=== PATIENT | female | born 1945 | race Caucasian/White ===

== ENCOUNTER → 2017-01-07 | Outpatient (CLI) | payer MEDICARE, BC ==
[2015-12-08 11:00] VITALS: BP 154/82
[~2017-01-07] MED LIST: ALPR0.25 PO; FLUO20TA11 PO
--- NOTE | 2017-01-07 15:05 | RAD ---
Lumbar spine, 3 views, 01/07/2017: History: Chronic low back pain There is a mild left convexity lumbar scoliosis. The vertebral heights are well-maintained. The intervertebral disc spaces are fairly well preserved. There are mild scattered marginal spurs. There are moderate degenerative changes involving the facet joints in the lower lumbar spine. A grade 1 spondylolisthesis is present at L5-S1. There appears to be underlying spondylolysis at L5. This spondylolisthesis progressed since 08/22/2006. Aortic calcific plaquing is present. IMPRESSION: 1. Mild to moderate scattered degenerative changes. 2. Grade 1 spondylolisthesis at L5-S1 with probable underlying spondylolysis at L5.
== END | disposition home or self-care (01) ==
LOC: RAD 08:45
PROVIDERS: ATTEND Neurological Surgery
DX: M47.896 Other spondylosis, lumbar region (principal)
CPT/HCPCS: 72100

== ENCOUNTER 2017-02-17 04:20 | Emergency (ER) | payer MEDICARE, BC ==
[~2017-02-17] VITALS: Ht 160 cm; Wt 80.3 kg
[2017-02-17 05:20] LABS: BILIRUBIN,URINE NEGATIVE (NEG); GLUCOSE,URINE NEGATIVE (NEG); NITRITE,URINE NEGATIVE (NEG); PROTEIN,URINE NEGATIVE (NEG-TRACE); UROBILINOGEN,URINE 0.2 mg/dL (0.2 mg/dL)
--- NOTE | 2017-02-17 05:32 | RAD ---
INDICATION: Vertigo COMPARISON: None TECHNIQUE: Axial CT images obtained through the head. One or more of the following individualized dose reduction techniques were utilized for this examination: 1. Automated exposure control; 2. Adjustment of the mA and/or kV according to patient size; 3. Use of iterative reconstruction technique. FINDINGS: No midline shift. Ventricles and sulci are prominent. Basilar cistern patent. No gross hemorrhage. No displaced skull fracture. Regions of low attenuation of the white matter. IMPRESSION: No acute intracranial hemorrhage. Regions of low attenuation of the white matter. Nonspecific but frequently secondary to small vessel ischemic disease. If there is any clinical concern for acute etiology MRI could be obtained to assess whether any of these foci are acute. Other possible causes include sequela of demyelination or migraine. Electronically signed by: Rick French (Feb 17, 2017 05:31:24)
[2017-02-17 05:34] LABS: BACTERIA,URINE FEW /HPF (0-FEW); RBC,URINE 0 /HPF (0-2); SQUAMOUS EPITHELIAL CELL,UR FEW /LPF
[2017-02-17 05:44] LABS: BASO % 0 % (0-3); EOS % 1 % (0-3); HEMATOCRIT 44.2 % (36.0-47.0); HEMOGLOBIN 14.7 g/dL (12.0-15.5); LYMPH # 2.1 x10^3/uL (1.0-4.8); LYMPH % 31 % (24-48); MEAN CORPUSCULAR HEMOGLOBIN 29 pg (25-35); MEAN CORPUSCULAR HGB CONC 33 g/dL (31-37); MEAN CORPUSCULAR VOLUME 88 fL (79-100); MONO % 8 % (0-9); NEUT % 60 % (31-73); PLATELET COUNT 242 x10^3/uL (140-400); RED CELL DISTRIBUTION WIDTH 13.9 % (11.5-14.5); WHITE BLOOD COUNT 6.8 x10^3/uL (4.0-11.0)
[2017-02-17 05:48] LABS: CALCIUM 9.5 mg/dL (8.5-10.1); GFR 54.8
[2017-02-17 05:51] VITALS: BP 155/85
[2017-02-17 05:56] LABS: ALBUMIN 3.8 g/dL (3.4-5.0); ALBUMIN/GLOBULIN RATIO 0.9 (1.0-1.7); TOTAL BILIRUBIN 0.4 mg/dL (0.2-1.0); TOTAL PROTEIN 8.1 g/dL (6.4-8.2)
[2017-02-17] MEDS ORDERED: MECLIZINE HCL 12.5 MG TABLET. PO ONE (06:15)
[2017-02-17] MEDS ORDERED: MECL25TA3 PO (06:29)
--- NOTE | 2017-02-17 06:29 | PHYS DOC ---
Past Medical History Past Medical History: Other Additional Past Medical Histor: VERTIGO Past Surgical History: No Surgical History Alcohol Use: None Drug Use: None Adult General Chief Complaint Chief Complaint: HYPERTENSION HPI HPI 71-year-old female who states she's had subjective dizziness when she turns her head to the right for the last 2-3 days. Patient has had vertigo in the past most recently approximately one year ago and has been told she does have an inner ear issue that has required physical therapy in the past. She states she did feel like she was going to vomit earlier today but has no other significant symptoms. She denies any headache. She denies any shortness of breath or chest pain. She denies any fever or chills. She does state she has some sinus congestion. There is an at-home blood pressure machine at home and she took her pressure and it was slightly elevated and she states her blood pressure is normally well controlled without medications. Currently in the room her blood pressure is 155/85. Patient denies any current symptoms upon my initial assessment. Review of Systems Review of Systems Constitutional: Denies fever or chills [] Eyes: Denies change in visual acuity, redness, or eye pain [] HENT: Has nasal congestion, denies sore throat [] Respiratory: Denies cough or shortness of breath [] Cardiovascular: No additional information not addressed in HPI [] GI: Denies abdominal pain, nausea, vomiting, bloody stools or diarrhea [] : Denies dysuria or hematuria [] Musculoskeletal: Denies back pain or joint pain [] Integument: Denies rash or skin lesions [] Neurologic: Denies headache, focal weakness or sensory changes [] Endocrine: Denies polyuria or polydipsia [] Current Medications Current Medications Current Medications Medications (Trade) Dose Ordered Sig/Mark Start Time Stop Time Status Last Admin Dose Admin Meclizine HCl (Antivert) 50 mg 1X ONCE 02/17/17 06:15 02/17/17 06:16 DC 02/17/17 06:26 50 MG Allergies Allergies Allergies Coded Allergies Type Severity Reaction Last Updated Verified cephalexin Allergy Severe shortness of breath 12/06/15 Yes Tetracyclines Allergy Intermediate palpatations 12/06/15 Yes erythromycin base Allergy Intermediate vomiting 12/06/15 Yes metronidazole Allergy Intermediate palpatations, nausea, intestinal noise, numbness 12/06/15 Yes omeprazole Allergy Intermediate chest pain 12/06/15 Yes pantoprazole Allergy Intermediate headache 12/06/15 Yes shrimp Allergy Intermediate facial flushing 12/06/15 Yes Physical Exam Physical Exam Constitutional: Well developed, well nourished, no acute distress, non-toxic appearance. [] HENT: Normocephalic, atraumatic, bilateral external ears normal, oropharynx moist, no oral exudates, nose normal. [] Eyes: PERRLA, EOMI, conjunctiva normal, no discharge. [] Neck: Normal range of motion, no tenderness, supple, no stridor. [] Cardiovascular:Heart rate regular rhythm, no murmur [] Lungs & Thorax: Bilateral breath sounds clear to auscultation [] Abdomen: Bowel sounds normal, soft, no tenderness, no masses, no pulsatile masses. [] Skin: Warm, dry, no erythema, no rash. [] Back: No tenderness, no CVA tenderness. [] Extremities: No tenderness, no cyanosis, no clubbing, ROM intact, no edema. [] Neurologic: Alert and oriented X 3, normal motor function, normal sensory function, no focal deficits noted. [] Psychologic: Affect normal, judgement normal, mood normal. [] Current Patient Data Vital Signs Vital Signs Date Time Temp Pulse Resp B/P Pulse Ox O2 Delivery O2 Flow Rate FiO2 02/17/17 05:51 72 155/85 98 Room Air 02/17/17 05:11 97.5 16 97.5 Lab Values Laboratory Tests Test 02/17/17 05:10 02/17/17 05:30 Urine Collection Type Unknown Urine Color Yellow Urine Clarity Clear Urine pH 7.0 Urine Specific [place] 1.010 Urine Protein Negativemg/dL (NEG-TRACE) Urine Glucose (UA) Negativemg/dL (NEG) Urine Ketones (Stick) Negativemg/dL (NEG) Urine Blood Negative (NEG) Urine Nitrite Negative (NEG) Urine Bilirubin Negative (NEG) Urine Urobilinogen Dipstick 0.2mg/dL (0.2 mg/dL) Urine Leukocyte Esterase Large (NEG) Urine RBC 0/HPF (0-2) Urine WBC 11-20/HPF (0-4) Urine Squamous Epithelial Cells Few/LPF Urine Bacteria Few/HPF (0-FEW) White Blood Count 6.8x10^3/uL (4.0-11.0) Red Blood Count 5.00x10^6/uL (3.50-5.40) Hemoglobin 14.7g/dL (12.0-15.5) Hematocrit 44.2% (36.0-47.0) Mean Corpuscular Volume 88fL (79-100) Mean Corpuscular Hemoglobin 29pg (25-35) Mean Corpuscular Hemoglobin Concent 33g/dL (31-37) Red Cell Distribution Width 13.9% (11.5-14.5) Platelet Count 242x10^3/uL (140-400) Neutrophils (%) (Auto) 60% (31-73) Lymphocytes (%) (Auto) 31% (24-48) Monocytes (%) (Auto) 8% (0-9) Eosinophils (%) (Auto) 1% (0-3) Basophils (%) (Auto) 0% (0-3) Neutrophils # (Auto) 4.1x10^3uL (1.8-7.7) Lymphocytes # (Auto) 2.1x10^3/uL (1.0-4.8) Monocytes # (Auto) 0.5x10^3/uL (0.0-1.1) Eosinophils # (Auto) 0.1x10^3/uL (0.0-0.7) Basophils # (Auto) 0.0x10^3/uL (0.0-0.2) Sodium Level 138mmol/L (136-145) Potassium Level 4.0mmol/L (3.5-5.1) Chloride Level 101mmol/L (98-107) Carbon Dioxide Level 28mmol/L (21-32) Anion Gap 9 (6-14) Blood Urea Nitrogen 16mg/dL (7-20) Creatinine 1.0mg/dL (0.6-1.0) Estimated GFR (Cockcroft-Gault) 54.8 BUN/Creatinine Ratio 16 (6-20) Glucose Level 112mg/dL (70-99) H Calcium Level 9.5mg/dL (8.5-10.1) Total Bilirubin 0.4mg/dL (0.2-1.0) Aspartate Amino Transferase (AST) 12U/L (15-37) L Alanine Aminotransferase (ALT) 17U/L (14-59) Alkaline Phosphatase 72U/L (46-116) Troponin I Quantitative < 0.017ng/mL (0.000-0.055) Total Protein 8.1g/dL (6.4-8.2) Albumin 3.8g/dL (3.4-5.0) Albumin/Globulin Ratio 0.9 (1.0-1.7) L Laboratory Tests 02/17/17 05:30 Laboratory Tests 02/17/17 05:30 EKG EKG EKG as interpreted by me shows sinus rhythm with a rate of 73 bpm. There are no obvious ischemic findings. This EKG does not meet STEMI criteria. Radiology/Procedures Radiology/Procedures INDICATION: Vertigo COMPARISON: None TECHNIQUE: Axial CT images obtained through the head. One or more of the following individualized dose reduction techniques were utilized for this examination: 1. Automated exposure control; 2. Adjustment of the mA and/or kV according to patient size; 3. Use of iterative reconstruction technique. FINDINGS: No midline shift. Ventricles and sulci are prominent. Basilar cistern patent. No gross hemorrhage. No displaced skull fracture. Regions of low attenuation of the white matter. IMPRESSION: No acute intracranial hemorrhage. Regions of low attenuation of the white matter. Nonspecific but frequently secondary to small vessel ischemic disease. If there is any clinical concern for acute etiology MRI could be obtained to assess whether any of these foci are acute. Other possible causes include sequela of demyelination or migraine. Electronically signed by: Rick French (Feb 17, 2017 05:31:24) Course & Med Decision Making Course & Med Decision Making Pertinent Labs and Imaging studies reviewed. (See chart for details) This 71-year-old female who is likely describing symptoms of positional vertigo. Her physical exam is completely benign and I was not able to elicit any symptoms. She is currently not having any symptoms. Her blood work was unrevealing. Her urinalysis demonstrates infection. An EKG at bedside will be obtained. If this is negative, she will be sent home for evaluation with her primary care doctor to have her blood pressure rechecked and will also be prescribed antibiotics for her UTI and melizine as needed for any vertigo symptoms. Her neurologic exam was completely negative for any focal signs. The patient was successfully ambulated multiple times while in the department. Her EKG was unrevealing. CT of her head did show some areas of low attenuation white matter that are nonspecific but likely related to small vessel disease. She will follow closely with her primary care doctor for her symptoms with strict instruction to return if her symptoms should worsen in any way. Patient and family at bedside are very agreeable with this plan. Zeke Disclaimer Zeke Disclaimer This electronic medical record was generated, in whole or in part, using a voice recognition dictation system. Departure Departure Impression: Primary Impression: Vertigo Additional Impression: UTI (urinary tract infection) Disposition: HOME, SELF-CARE Admitting Physician: Other Condition: STABLE Referrals: MARIA LUZ NUNEZ MD (PCP) Patient Instructions: Urinary Tract Infection, [id number], Vertigo, Easy-to- Read Additional Instructions: Please follow up later today as discussed with your primary doctor to have your blood pressure rechecked. Take your antibiotic as prescribed. Take your meclizine as prescribed for any dizziness symptoms. Continue to drink plenty of fluids. Scripts Nitrofurantoin Monohyd/M-Cryst (Macrobid 100 Mg Capsule)100 Mg Capsule1 Cap PO BID #10 CAP Prov:MAGALI AVILA DO 02/17/17 Meclizine Hcl 25 Mg Lttmim72 Mg PO BID PRN dizziness #10 TAB Prov:MAGALI AVILA DO 02/17/17 Problem Qualifiers MAGALI AVILA DO Feb 17, 2017 06:29
[2017-02-17] MEDS ORDERED: NITR100C62 PO (06:32)
--- NOTE | 2017-02-17 07:30 | EKG ---
[facility] [address] [place] [address] Test Date: 2017-02-17 Test Time: 06:41:36 Pat Name: CIRILO DE LOS SANTOS Department: Room: Gender: F Manager Sign: : 1945 Requested By: MAGALI AVILA Order Number: [id number] Reading MD: Jadon Payan Measurements Intervals [place] Rate: 73 P: 22 [place]: 158 QRS: 26 QRSD: 86 T: 16 QT: 372 QTc: 413 Interpretive Statements SINUS RHYTHM Electronically Signed On 02-17-2017 8:29:07 CDT by Jadon Payan
== END 2017-02-17 06:55 | disposition home or self-care (01) ==
LOC: ER 04:20
DX: R42 Dizziness and giddiness (principal); N39.0 Urinary tract infection, site not specified; R09.81 Nasal congestion; R03.0 Elevated blood-pressure reading, without diagnosis of hypertension; Z88.8 Allergy status to other drugs, medicaments and biological substances; Z88.1 Allergy status to other antibiotic agents; Z91.013 Allergy to seafood
CPT/HCPCS: 36415; 70450; 80053; 81001; 84484; 85027; 87086; 93005; 99285; J8597

== ENCOUNTER 2017-02-18 15:07 | Inpatient (IN) | payer MEDICARE, BC ==
[~2017-02-18] VITALS: Ht 160 cm; Wt 78.7 kg
[~2017-02-18 15:07] MED LIST changes: +MECL25TA3 PO; +NITR100C62 PO
[2017-02-18] MEDS ORDERED: diphenhydrAMINE 50 MG/ML VIAL IVP ONE (16:45)
[2017-02-18] MEDS ORDERED: KETOROLAC 15 MG/ML VIAL. IV ONE (16:45)
[2017-02-18] MEDS ORDERED: PROCHLORPERAZINE 10 MG/2 ML VIAL. IV ONE (16:45)
--- NOTE | 2017-02-18 16:48 | RAD ---
AP portable chest radiograph 02/18/2017 Clinical History: Shortness of breath. An AP portable erect digital radiograph of the chest was obtained. No previous studies are available for comparison. The cardiac silhouette is mildly enlarged. The thoracic aorta is tortuous. Atherosclerotic calcification of the thoracic aorta is seen. Linear bands of subsegmental atelectasis are seen involving the left lower lobe. No area of consolidation is seen. No pneumothorax or pleural effusion is noted. Degenerative changes are seen involving the thoracic spine and both shoulders. Impression: No area of consolidation is seen.
--- NOTE | 2017-02-18 17:05 | EKG ---
[facility] [address] [place] [address] Test Date: 2017-02-18 Test Time: 16:20:08 Pat Name: CIRILO DE LOS SANTOS Department: Room: Gender: F Certified Tumor Registrar: : 1945 Requested By: MATTHIEU ROCHA Order Number: [id number] Reading MD: Jadon Payan Measurements Intervals [place] Rate: 80 P: 23 [place]: 154 QRS: 45 QRSD: 88 T: 21 QT: 356 QTc: 414 Interpretive Statements SINUS RHYTHM Electronically Signed On 03-01-2017 13:05:39 CDT by Jadon Payan
--- NOTE | 2017-02-18 17:19 | ED.ADGEN ---
Past Medical History Past Medical History: Hypertension, UTI Additional Past Medical Histor: dizziness Past Surgical History: No Surgical History Alcohol Use: None Drug Use: None Adult General Chief Complaint Chief Complaint: HEADACHE HPI HPI Patient is a 71 year old woman, with history of hypertension, vertigo, who presents emergency Department with a complaint of headache. Patient was seen in the emergency department yesterday, evaluated for vertigo that occurred just turned her head to the right side. Patient received meclizine, CT, blood work and additional evaluation which not reveal any evidence of acutely certain findings, and her vertigo was improved. Patient was also treated for area tract infection at that time. Patient states that she saw her doctor today, and was told that her blood pressure remained elevated, patient states she has been not fully compliant with her blood pressure medication the past, but did take her hydralazine 12.5 mg around 1 PM about 2 hours prior to evaluation in the ED. Patient's blood pressure remains elevated, 180 02/05/03. Patient also states that she had a brief episode of "feeling my throat was closing up", and shortness of breath about an hour after taking ciprofloxacin and Aleve along with hydralazine. She denies any the symptoms prior to taking the medication or afterwards. Denies any other ingestions during that time period. She states that she has used Cipro Floxin previously, and she was changed from Macrobid to ciprofloxacin by her primary today. Patient with unlabored respirations and no signs of tongue swelling or stridor or other concerning findings on examination at this time. She denies any focal weakness, numbness or tingling, any vision changes, any nausea or vomiting, any chest pain, any abdominal pain, any injuries. She states that her headache is located in the frontal region, is not worsened with motion or activity. Has not responded to the leave at this time. She describes it as a 10 out of 10 pain currently. No photophobia, denies any similar symptoms previously. No injuries. She states it began yesterday evening , and became gradually worse, she states it started shortly after she took her first dose of antibiotics. Patient's son is at bedside. Review of Systems Review of Systems Constitutional: Denies fever or chills. [] Eyes: Denies change in visual acuity. [] HENT: Denies nasal congestion or sore throat, feeling of "throat tightness", now resolved. Respiratory: Denies cough, shortness of breath, now resolved. Cardiovascular: Denies chest pain or edema. [] GI: Denies abdominal pain, nausea, vomiting, bloody stools or diarrhea. [] : Denies dysuria. [] Musculoskeletal: Denies back pain or joint pain. [] Integument: Denies rash. [] Neurologic: Denies focal weakness or sensory changes. [] Frontal headache. Endocrine: Denies polyuria or polydipsia. [] Lymphatic: Denies swollen glands. [] Psychiatric: Denies depression or anxiety. [] Current Medications Current Medications Current Medications Medications (Trade) Dose Ordered Sig/Mark Start Time Stop Time Status Last Admin Dose Admin Amlodipine Besylate (Norvasc) 5 mg 1X ONCE 02/18/17 20:30 02/18/17 20:31 DC 02/18/17 20:30 5 MG Diphenhydramine HCl (Benadryl) 25 mg 1X ONCE 02/18/17 16:45 02/18/17 16:46 DC 02/18/17 17:47 25 MG Ketorolac Tromethamine (Toradol) 10 mg 1X ONCE 02/18/17 16:45 02/18/17 16:46 DC 02/18/17 17:45 10 MG Lidocaine HCl (Lidocaine Pf 2% Vial) 4 ml 1X ONCE 02/18/17 18:45 02/18/17 18:46 DC 02/18/17 19:26 4 ML Prochlorperazine Edisylate (Compazine) 10 mg 1X ONCE 02/18/17 16:45 02/18/17 16:46 DC 02/18/17 17:44 10 MG Allergies Allergies Allergies Coded Allergies Type Severity Reaction Last Updated Verified cephalexin Allergy Severe shortness of breath 12/06/15 Yes Tetracyclines Allergy Intermediate palpatations 12/06/15 Yes erythromycin base Allergy Intermediate vomiting 12/06/15 Yes metronidazole Allergy Intermediate palpatations, nausea, intestinal noise, numbness 12/06/15 Yes omeprazole Allergy Intermediate chest pain 12/06/15 Yes pantoprazole Allergy Intermediate headache 12/06/15 Yes shrimp Allergy Intermediate facial flushing 12/06/15 Yes Physical Exam Physical Exam Constitutional: Well developed, well nourished, no acute distress, non-toxic appearance. [] HENT: Normocephalic, atraumatic, bilateral external ears normal, oropharynx moist, no oral exudates, nose normal. [] Normal-appearing mucosa and tongue. Eyes: PERRLA, EOMI, conjunctiva normal, no discharge. [] Neck: Normal range of motion, no tenderness, supple, no stridor. [] Cardiovascular:Heart rate regular rhythm, no murmur, S1, S2, rubs or gallops. [] Lungs & Thorax: Bilateral breath sounds clear to auscultation, no wheezing, rhonchi, rales. No chest or crepitus or tenderness. [] Abdomen: Bowel sounds normal, soft, no tenderness, no rebound, rigidity, no guarding, no masses, no pulsatile masses. [] Skin: Warm, dry, no erythema, no rash. [] Back: No tenderness, no CVA tenderness. [] Extremities: No tenderness, no cyanosis, no clubbing, ROM intact, no edema. [] Neurologic: Alert and oriented X 3, normal motor function, patient complains of slightly diminished sensation on the left side of her face, left upper extremity left lower extremity circumferentially. Negative pronator drift, negative jolt accentuation test. Psychologic: Affect normal, judgement normal, mood normal. [] Current Patient Data Vital Signs Vital Signs Date Time Temp Pulse Resp B/P Pulse Ox O2 Delivery O2 Flow Rate FiO2 02/18/17 20:30 80 178/84 02/18/17 20:29 96 Room Air 02/18/17 15:12 97.5 20 97.5 Lab Values Laboratory Tests Test 02/18/17 17:20 02/18/17 17:25 02/18/17 17:45 Urine Opiates Screen Neg (NEG) Urine Methadone Screen Neg (NEG) Urine Barbiturates Neg (NEG) Urine Phencyclidine Screen Neg (NEG) Urine Amphetamine/Methamphetamine Neg (NEG) Urine Benzodiazepines Screen Neg (NEG) Urine Cocaine Screen Neg (NEG) Urine Cannabinoids Screen Neg (NEG) Urine Ethyl Alcohol Neg (NEG) Urine Color Yellow Urine Clarity Clear Urine pH 5.5 Urine Specific [place] 1.015 Urine Protein Negativemg/dL (NEG-TRACE) Urine Glucose (UA) Negativemg/dL (NEG) Urine Ketones (Stick) Negativemg/dL (NEG) Urine Blood Negative (NEG) Urine Nitrite Negative (NEG) Urine Bilirubin Negative (NEG) Urine Urobilinogen Dipstick 0.2mg/dL (0.2 mg/dL) Urine Leukocyte Esterase Small (NEG) Urine RBC 0/HPF (0-2) Urine WBC 1-4/HPF (0-4) Urine Squamous Epithelial Cells Occ/LPF Urine Bacteria Few/HPF (0-FEW) Urine Mucus Slight/LPF White Blood Count 8.4x10^3/uL (4.0-11.0) Red Blood Count 5.04x10^6/uL (3.50-5.40) Hemoglobin 14.9g/dL (12.0-15.5) Hematocrit 44.5% (36.0-47.0) Mean Corpuscular Volume 88fL (79-100) Mean Corpuscular Hemoglobin 30pg (25-35) Mean Corpuscular Hemoglobin Concent 34g/dL (31-37) Red Cell Distribution Width 13.7% (11.5-14.5) Platelet Count 230x10^3/uL (140-400) Neutrophils (%) (Auto) 63% (31-73) Lymphocytes (%) (Auto) 28% (24-48) Monocytes (%) (Auto) 8% (0-9) Eosinophils (%) (Auto) 0% (0-3) Basophils (%) (Auto) 0% (0-3) Neutrophils # (Auto) 5.2x10^3uL (1.8-7.7) Lymphocytes # (Auto) 2.4x10^3/uL (1.0-4.8) Monocytes # (Auto) 0.7x10^3/uL (0.0-1.1) Eosinophils # (Auto) 0.0x10^3/uL (0.0-0.7) Basophils # (Auto) 0.0x10^3/uL (0.0-0.2) Prothrombin Time 13.0SEC (11.7-14.0) Prothrombin Time INR 1.0 (0.8-1.1) PTT 30SEC (24-38) Sodium Level 130mmol/L (136-145) L Potassium Level 3.8mmol/L (3.5-5.1) Chloride Level 91mmol/L (98-107) L Carbon Dioxide Level 25mmol/L (21-32) Anion Gap 14 (6-14) Blood Urea Nitrogen 13mg/dL (7-20) Creatinine 1.0mg/dL (0.6-1.0) Estimated GFR (Cockcroft-Gault) 54.8 BUN/Creatinine Ratio 13 (6-20) Glucose Level 108mg/dL (70-99) H Calcium Level 9.2mg/dL (8.5-10.1) Total Bilirubin 0.6mg/dL (0.2-1.0) Aspartate Amino Transferase (AST) 12U/L (15-37) L Alanine Aminotransferase (ALT) 16U/L (14-59) Alkaline Phosphatase 63U/L (46-116) Troponin I Quantitative < 0.017ng/mL (0.000-0.055) Total Protein 7.7g/dL (6.4-8.2) Albumin 4.1g/dL (3.4-5.0) Albumin/Globulin Ratio 1.1 (1.0-1.7) Thyroid Stimulating Hormone (TSH) 2.768uIU/mL (0.358-3.74) Laboratory Tests 02/18/17 17:45 Laboratory Tests 02/18/17 17:45 EKG EKG EC: Sinus rhythm, heart rate 80 bpm, upright axis, QTC of 414, [place] 184, QRS of 80, no ST elevations or depressions, contour abnormalities noted in the septal leads, abnormal ECG, does not meet STEMI criteria. [] Radiology/Procedures Radiology/Procedures [] [facility] [address], [place] [id number] IMAGING REPORT Signed PATIENT: CIRILO DE LOS SANTOS ACCOUNT: [id number] : 1945 LOCATION: ER AGE: 71 SEX: F EXAM STATUS: REG ER ORD. PHYSICIAN: MATTHIEU ROCHA DO REASON: SOB PROCEDURE: CHEST AP ONLY AP portable chest radiograph 02/18/2017 Clinical History: Shortness of breath. An AP portable erect digital radiograph of the chest was obtained. No previous studies are available for comparison. The cardiac silhouette is mildly enlarged. The thoracic aorta is tortuous. Atherosclerotic calcification of the thoracic aorta is seen. Linear bands of subsegmental atelectasis are seen involving the left lower lobe. No area of consolidation is seen. No pneumothorax or pleural effusion is noted. Degenerative changes are seen involving the thoracic spine and both shoulders. Impression: No area of consolidation is seen. DICTATED and SIGNED BY: PA BOWSER MD DATE: 02/18/17 3690 CC: MATTHIEU ROCHA DO; JAZMYNE BLAKE MD ~ Course & Med Decision Making Course & Med Decision Making Pertinent Labs and Imaging studies reviewed. (See chart for details) Patient resting comfortably in the emergency department, blood pressure elevated as stated, 180 02/05/03 initially, heart rate is in the 70s, respiratory rate is 20 and unlabored, oxygen saturation of 98-99% on room air. Negative jolt accentuation test with no neck tenderness, headache was gradual in onset, and patient please may been incited by her antibiotic use. She is concerned about both the Macrobid and the Cipro although she has tolerated both medications without issue previously. Discussed with patient that her blood pressure may also be contributing to these headache symptoms. At this time aside from the subjective complaints of decreased sensation on the entire left side of her face and extremities, patient is neurologically intact on examination. I did discuss findings as above including the patient's previous CT of the brain performed yesterday that showed areas of likely small vessel disease, and changes consistent with possible migraine, with Dr. Brown of neurology. He recommends continue treat the patient's headache, and obtaining MRI of the brain without contrast to further elucidate her symptoms with evaluation for a possible cerebellar stroke may have caused both her vertiginous symptoms and her concurrent headache. Agrees that this is unlikely presentation for subarachnoid hemorrhage, or CVA, but that the MRI should clear up any concerning cause for the patient's symptoms. States that if the MRI is negative he would recommend discharge home and outpatient follow-up. I did discuss this with patient and son at bedside, patient is agreeable with this plan, received analgesia, and was transported to MRI for imaging without issue. MRI does not reveal any evidence of CVA, noted to have small amount of fluid surrounding the optic nerves, and empty sella, nonspecific but concerning for possible idiopathic intracranial hypertension. I did discuss these findings with Dr. Sahni, who recommends the patient follow up with ophthalmology, she is no evidence of papilledema on examination today, for further evaluation of the MRI findings, and with neurology for additional evaluation. Patient noted to have a mild hyponatremia, and a sodium of 130, which I believe is likely due to the patient's use of hydrochlorothiazide. I did speak with Dr. Lopes of cardiology, agreed with concern, we will institute the patient on Norvasc 5 mg twice a day and discontinue the patient's hydrochlorothiazide at this time. On reevaluation, after receiving medications as stated, and nebulized lidocaine, patient's headache is resolved. She has received her first dose of Norvasc in the ED, blood pressure is now 166/80, initially after discussion with patient and the plan as the patient be discharged home, she been ambulating in the ED, and felt that she'll be able to follow-up with ophthalmology, neurology and cardiology as stated. However, when the patient sat up to repair the discharge process, she stated that she was still feeling "wobbly and woozy", and based on the extensive workup she 30 received, and her continued symptoms, at this point we decided the patient be best served by admission to the hospital where she will be evaluated and continued to be observed. Findings as above discussed with Dr. Mitchell of internal medicine, patient accepted to her service as a full admission to the medical telemetry floor, with consultations placed for cardiology, ophthalmology and neurology as stated, will continue the patient's Macrobid at this time, and changes in her blood pressure medications as stated. Patient is in no further episodes of shortness of breath, and did tolerate a dose of Macrobid in the ED without issue. Patient transferred to the floor without issue. Dragon Disclaimer Dragon Disclaimer This electronic medical record was generated, in whole or in part, using a voice recognition dictation system. Departure Impression: Primary Impression: Headache Additional Impression: Hypertension Disposition: 09 ADMITTED INPATIENT Admitting Physician: Other Condition: IMPROVED Problem Qualifiers MATTHIEU ROCHA DO Feb 18, 2017 17:19
--- NOTE | 2017-02-18 17:35 | RAD ---
PROCEDURE MR brain without contrast. HISTORY Increased headaches with acute hypertension. TECHNIQUE Routine multiplanar multiple pulse sequence images of the brain obtained without IV contrast. COMPARISON CT head without contrast, prior day. FINDINGS No restricted diffusion is seen. No cerebellar tonsillar ectopia. Empty sella. No midline shift or mass effect. There are numerous foci of increased T2 and T2 FLAIR signal in the subcortical and periventricular white matter. Finding is nonspecific but is commonly due to chronic small vessel ischemic disease in a patient of this age. Ventricles and sulci are normal for patient age. No extra-axial fluid collection. No evidence of intraparenchymal hemorrhage. Globes are intact. Fluid is seen along the optic nerve sheaths bilaterally. Vascular flow voids are intact. Minimal mucosal thickening inferiorly in the bilateral maxillary sinuses. Mild mucosal thickening bilateral ethmoid sinuses. No air-fluid level. Mastoid air cells are clear. IMPRESSION 1. No acute intracranial abnormality. 2. Advanced periventricular and subcortical white matter changes probably due to chronic small vessel ischemic disease. 3. Empty sella. Fluid along optic nerve sheaths. Both findings are nonspecific but could indicate idiopathic intracranial hypertension. Electronically signed by: Juanjose Casas MD (Feb 18, 2017 17:33:27)
[2017-02-18 18:11] LABS: BASO % 0 % (0-3); EOS % 0 % (0-3); HEMATOCRIT 44.5 % (36.0-47.0); HEMOGLOBIN 14.9 g/dL (12.0-15.5); LYMPH # 2.4 x10^3/uL (1.0-4.8); LYMPH % 28 % (24-48); MEAN CORPUSCULAR HEMOGLOBIN 30 pg (25-35); MEAN CORPUSCULAR HGB CONC 34 g/dL (31-37); MEAN CORPUSCULAR VOLUME 88 fL (79-100); MONO % 8 % (0-9); NEUT % 63 % (31-73); PLATELET COUNT 230 x10^3/uL (140-400); RED BLOOD COUNT 5.04 x10^6/uL (3.50-5.40); RED CELL DISTRIBUTION WIDTH 13.7 % (11.5-14.5); WHITE BLOOD COUNT 8.4 x10^3/uL (4.0-11.0)
[2017-02-18 18:20] LABS: CALCIUM 9.2 mg/dL (8.5-10.1); GFR 54.8; POTASSIUM 3.8 mmol/L (3.5-5.1)
[2017-02-18 18:25] LABS: ALBUMIN 4.1 g/dL (3.4-5.0); ALBUMIN/GLOBULIN RATIO 1.1 (1.0-1.7); TOTAL BILIRUBIN 0.6 mg/dL (0.2-1.0); TOTAL PROTEIN 7.7 g/dL (6.4-8.2)
[2017-02-18 18:25] LABS: BARBITURATES NEG (NEG); BENZODIAZEPINES NEG (NEG); CANNABINOIDS NEG (NEG); COCAINE NEG (NEG); METHADONE NEG (NEG); OPIATES NEG (NEG); PHENCYCLIDINE NEG (NEG)
[2017-02-18 18:26] LABS: ETHANOL, URINE NEG (NEG)
[2017-02-18] MEDS ORDERED: LIDOCAINE 2% PF Vial for OR 5 ML VIAL. NEB ONE (18:45)
[2017-02-18 18:46] LABS: BILIRUBIN,URINE NEGATIVE (NEG); GLUCOSE,URINE NEGATIVE (NEG); NITRITE,URINE NEGATIVE (NEG); PH,URINE 5.5; PROTEIN,URINE NEGATIVE (NEG-TRACE); UROBILINOGEN,URINE 0.2 mg/dL (0.2 mg/dL)
[2017-02-18 19:00] LABS: RBC,URINE 0 /HPF (0-2)
[2017-02-18 19:01] LABS: BACTERIA,URINE FEW /HPF (0-FEW); SQUAMOUS EPITHELIAL CELL,UR OCC /LPF
[2017-02-18] MEDS ORDERED: AMLODIPINE BESYLATE 5 MG TABLET. PO ONE (20:30)
[2017-02-18] MEDS ORDERED: NITROFURANTOIN MONOHYD/M-CRYST 100 MG CAPSULE. PO ONE (22:00)
[2017-02-18] MEDS: FLUTICASONE 50MCG/NASAL SPRAY 16GM BOTTLE. NS SCH (22:00)
[2017-02-18] MEDS ORDERED: IV NORMAL SALINE 1000ML BAG 1,000 ML IV ONE (22:00)
[2017-02-18 23:00] VITALS: BP 154/94
[2017-02-18] MEDS ORDERED: ONDANSETRON PF 4 MG/2 ML VIAL. IV PRN (23:00)
[2017-02-18] MEDS ORDERED: ACETAMINOPHEN 325 MG TABLET. PO PRN (23:00)
[2017-02-18] MEDS ORDERED: KETOROLAC 15 MG/ML VIAL. IV PRN (23:00)
[2017-02-18] MEDS: IV NORMAL SALINE 1000ML BAG 1,000 ML IV SCH (23:30)
[2017-02-19 03:25] VITALS: BP 135/92
[2017-02-19 05:23] LABS: BASO % 0 % (0-3); EOS % 1 % (0-3); HEMATOCRIT 43.2 % (36.0-47.0); HEMOGLOBIN 14.5 g/dL (12.0-15.5); LYMPH # 2.1 x10^3/uL (1.0-4.8); LYMPH % 27 % (24-48); MEAN CORPUSCULAR HEMOGLOBIN 30 pg (25-35); MEAN CORPUSCULAR HGB CONC 34 g/dL (31-37); MEAN CORPUSCULAR VOLUME 88 fL (79-100); MONO % 9 % (0-9); NEUT % 64 % (31-73); PLATELET COUNT 228 x10^3/uL (140-400); RED BLOOD COUNT 4.93 x10^6/uL (3.50-5.40); RED CELL DISTRIBUTION WIDTH 13.7 % (11.5-14.5); WHITE BLOOD COUNT 7.6 x10^3/uL (4.0-11.0)
[2017-02-19 05:32] LABS: CREATININE 0.9 mg/dL (0.6-1.0); GFR 61.9; POTASSIUM 3.2 mmol/L (3.5-5.1)
[2017-02-19 07:00] VITALS: BP 166/93
[2017-02-19] MEDS: FLUTICASONE 50MCG/NASAL SPRAY 16GM BOTTLE. NS SCH (09:19)
[2017-02-19 10:47] VITALS: BP 157/88
[2017-02-19] MEDS: IV NORMAL SALINE 1000ML BAG 1,000 ML IV SCH (12:50)
[2017-02-19] MEDS ORDERED: POTASSIUM CHLORIDE 20 MEQ TABLET.ER. PO ONE (13:30)
--- NOTE | 2017-02-19 14:19 | SSS ---
ADMIT DATE: 02/19/2017 CHIEF COMPLAINT: Hypertension and headache. HISTORY OF PRESENT ILLNESS: The patient is a pleasant 71-year-old female who presented with headache to the ER. She is also hypertensive with blood pressures in the 200s. She was admitted overnight for observation with accelerated hypertension. This morning, she is back to her baseline. We plan to discharge. PAST MEDICAL HISTORY: Accelerated hypertension, chronic headaches, UTI. ALLERGIES: MULTIPLE, PLEASE REFER TO THE CHART, BUT SHE IS ALLERGIC TO TETRACYCLINE AND CEPHALEXIN AMONG OTHERS. FAMILY HISTORY: Hypertension. SOCIAL HISTORY: She is . She does not drink, smoke or take drugs. MEDICATIONS: Reviewed, please refer to the MRAD. REVIEW OF SYSTEMS: GENERAL: No history of weight change, weakness or fevers. SKIN: No bruising, hair changes or rashes. EYES: No blurred, double or loss of vision. NOSE AND THROAT: No history of nosebleeds, hoarseness or sore throat. HEART: No history of palpitations, chest pain or shortness of breath on exertion. LUNGS: Denies cough, hemoptysis, wheezing or shortness of breath. GASTROINTESTINAL: Denies changes in appetite, nausea, vomiting, diarrhea or constipation. GENITOURINARY: No history of frequency, urgency, hesitancy or nocturia. NEUROLOGIC: Denies history of numbness, tingling, tremor or weakness. PSYCHIATRIC: No history of panic, anxiety or depression. ENDOCRINE: No history of heat or cold intolerance, polyuria or polydipsia. EXTREMITIES: Denies muscle weakness, joint pain, pain on walking or stiffness. PHYSICAL EXAMINATION: VITAL SIGNS: Temperature afebrile, pulse ____, respirations 20, blood pressure down to 153/80. GENERAL: She is alert, cooperative. HEART: Normal S1, S2. LUNGS: Clear. ABDOMEN: Soft. EXTREMITIES: No edema. SKIN: No rashes. PSYCHIATRIC: She is stable. VASCULAR: Good capillary refill. ENDOCRINE: No thyromegaly. LYMPHATICS: No cervical nodes. HEMATOPOIETIC: No bruising. LABORATORY DATA: White count 8, hemoglobin 14, platelets 230. Electrolytes: Sodium was low at 130. Potassium is low at 3.2, chloride 93, bicarbonate 26, BUN 10, creatinine 0.9, glucose 120. ASSESSMENT AND PLAN: Resolving accelerated hypertension and hyponatremia and hypokalemia. The patient has been admitted. She is back to her baseline. We are going to replace her potassium. I gave her a prescription for some Norvasc. We will discharge this afternoon if she is still feeling better. DISPOSITION: Home. ACTIVITY: As tolerated. DIET: Low-sodium. MEDICATIONS: Please see the MRAD. TOTAL TIME: 34 minutes. NIAL Anna SALAZAR DO DR: SABRA/ambrose JOB#: [id number] / [id number]
[2017-02-19] MEDS ORDERED: NITROFURANTOIN MONOHYD/M-CRYST 100 MG CAPSULE. PO SCH (21:00)
== END 2017-02-19 14:10 | disposition home or self-care (01) | DRG 683 ==
LOC: ER 15:07 → 4 NORTH 21:43
PROVIDERS: ADMIT Internal Medicine Hematology & Oncology; ATTEND Internal Medicine Hematology & Oncology
DX: I12.9 Hypertensive chronic kidney disease with stage 1 through stage 4 chronic kidney disease, or unspecified chronic kidney disease (principal); E87.1 Hypo-osmolality and hyponatremia; J98.11 Atelectasis; R51 Headache; E87.6 Hypokalemia; I70.0 Atherosclerosis of aorta; Z82.49 Family history of ischemic heart disease and other diseases of the circulatory system; Z87.440 Personal history of urinary (tract) infections; Z88.1 Allergy status to other antibiotic agents; Z88.2 Allergy status to sulfonamides; Z88.8 Allergy status to other drugs, medicaments and biological substances; Z91.013 Allergy to seafood; N18.3 Chronic kidney disease, stage 3 (moderate)
CPT/HCPCS: 36415; 70450; 70551; 71010; 80048; 80053; 81001; 84443; 84484; 85027; 85610; 85730; 87086; 93005; 94640; 96374; 96375; G0481; J0780; J1200; J1885; J7030; J8597; 99285-25

== ENCOUNTER → 2017-05-17 | Outpatient (CLI) | payer MEDICARE, BC ==
--- NOTE | 2017-05-17 12:34 | RAD ---
APPROVED REPORT Patient Location : OUT-PATIENT Indications Lower Extremity Pain : Bilateral Lower Extremity Edema : Bilateral Varicose Veins Findings Gaxiola scale images of the bilateral rate saphenous and lesser saphenous veins were obtained and do not reveal any evidence of thrombus on limited imaging. The right great saphenous vein measures 5.1 mm and does not show any evidence of reflux. The left gre at saphenous vein measures 6.1 mm and does not reflux. The bilateral lesser saphenous veins do not reflux. Critical Notification Critical Value: No
== END | disposition home or self-care (01) ==
LOC: US 12:21
PROVIDERS: ATTEND Internal Medicine Cardiovascular Disease
DX: I83.93 Asymptomatic varicose veins of bilateral lower extremities (principal); M79.605 Pain in left leg; M79.604 Pain in right leg; R60.0 Localized edema
CPT/HCPCS: 93970

== ENCOUNTER 2021-08-23 12:30 | Inpatient (IN) | payer MEDICARE, BC ==
[~2021-08-23] VITALS: Ht 162.6 cm; Wt 83.6 kg
[~2021-08-23 12:30] MED LIST changes: +ACET325T9 PO; +ASPI81TA59 PO; +LISI-517 PO; +LORA0.5T96 PO; +MECL-75 PO; -MECL25TA3 PO
--- NOTE | 2021-08-23 12:56 | EKG ---
[facility] [address] [place] [id number] Test Date: 2021-08-23 Test Time: 12:35:01 Pat Name: CIRILO DE LOS SANTOS Department: Room: Gender: F School Inspector: : 1945 Requested By: DUANE GIBBONS Order Number: [id number] Reading MD: Jadon Payan MD Measurements Intervals [place]ra Rate: 74 P: 26 AZ: 154 QRS: 69 QRSD: 130 T: -1 QT: 370 QTc: 416 Interpretive Statements SINUS RHYTHM NON-SPECIFIC ST/T CHANGES Electronically Signed On 08-24-2021 10:23:03 CDT by Jadon Payan MD
[2021-08-23] MEDS ORDERED: DEXAMETHASONE SOD PHOS 4 MG/ML VIAL IVP ONE ×2 (13:00→14:15)
[2021-08-23] MEDS ORDERED: ONDANSETRON PF 4 MG/2 ML VIAL. IVP ONE ×2 (13:00→14:15)
[2021-08-23] MEDS ORDERED: MECLIZINE HCL 12.5 MG TABLET. PO ONE (13:00)
[2021-08-23] MEDS ORDERED: IV NORMAL SALINE 1000ML BAG 1,000 ML IV ONE (13:00)
[2021-08-23] MEDS ORDERED: DEXAMETHASONE SOD PHOS 20 MG/5 ML VIAL. ONE (13:06)
--- NOTE | 2021-08-23 13:08 | RAD ---
XR CHEST 1V History: Weakness Comparison: 02/21/2017 Technique: Portable AP radiograph of the chest. Findings: The lungs are adequately inflated. Chronic mildly increased interstitial opacities. No airspace conso lidation, pleural effusion or pneumothorax. The cardiomediastinal silhouette and pulmonary vasculatur e are within normal limits. Calcification of the aortic arch. No acute osseous abnormality. Soft tiss ues are unremarkable. Impression: 1. No acute cardiopulmonary process. Electronically signed by: Jim Olivier MD (08/23/2021 1:06 PM) [facility]
[2021-08-23 13:17] LABS: BILIRUBIN,URINE NEGATIVE (NEG); CLARITY,URINE CLEAR; COLOR,URINE YELLOW; NITRITE,URINE NEGATIVE (NEG); PROTEIN,URINE NEGATIVE (NEG-TRACE); UROBILINOGEN,URINE 0.2 mg/dL (0.2 mg/dL)
--- NOTE | 2021-08-23 13:23 | RAD ---
CT HEAD/BRAIN WO dated 08/23/2021 1:05 PM. Comparison: CT 02/17/2017. Clinical Indication: Reason: dizziness, HTN / Spl. Instructions: / History: Technical factors: Contiguous 5 mm axial images of the head were obtained from the skullbase to the vertex. No contrast was administered. Findings: There is no apparent intracranial mass, hemorrhage or abnormal extra-axial fluid collection. Diffuse low-attenuation is again seen through the cerebral white matter, and may relate to hypertension/chron ic small vessel ischemic change. No definite new area of abnormal density is seen. The ventricles and basilar cisterns are normally positioned. The sinuses and mastoid air cells are clear. Impression: No evidence of acute intracranial abnormality. Electronically signed by: Rajiv Beauchamp Jr., MD (08/23/2021 1:21 PM) [facility]
--- NOTE | 2021-08-23 13:38 | PHYS DOC ---
Past Medical History Past Medical History: GERD ("Hiatal hernia"), Hypertension, UTI Additional Past Medical Histor: dizziness, OSTEOPOROSIS, vertigo Past Surgical History: No Surgical History Smoking Status: Former Smoker Alcohol Use: None Drug Use: None General Adult EDM: Chief Complaint: DIZZY/LIGHT HEADED HPI: HPI: Patient is a 75-year-old female presents via EMS with report of dizziness with associated nausea that started this morning. Patient does describe that the room seems to sway side to side. Patient reports dizziness worse with movement. Patient does report history of prior vertigo but reports the symptoms are worse and different than prior episodes. Patient reports taking some Xanax this morning without improvement. Patient subsequently vomited upon arrival to the ER. Patient reports history of recent admission with cardiac evaluation and placement of medications for hypertension. Patient reports just saw Dr. Payan from cardiology and was placed on a Holter monitor. Patient denies any chest pain. Patient does report some epigastric abdominal discomfort. Patient reports she had a headache last night for which she took Tylenol and aspirin. Reports headache now resolved. Denies trauma. Review of Systems: Review of Systems: Constitutional: Denies fever or chills Eyes: Denies redness or eye pain HENT: Denies nasal congestion or sore throat Respiratory: Denies cough or shortness of breath Cardiovascular: Denies chest pain or palpitations GI: Reports abdominal pain, nausea, and vomiting : Denies dysuria or hematuria Musculoskeletal: Denies back pain or joint pain Integument: Denies rash or skin lesions Neurologic: Denies current headache (had one last night), focal weakness or sensory changes; reports dizziness Complete systems were reviewed and found to be within normal limits, except as documented in this note. Heart Score: C/O Chest Pain: N/A Current Medications: Current Medications Medications (Trade) Dose Ordered Sig/Mark Start Time Stop Time Status Last Admin Dose Admin Dexamethasone Sodium Phosphate (Decadron) 20 mg STK-MED ONCE 08/23/21 13:06 08/23/21 13:07 DC Meclizine HCl (Antivert) 25 mg 1X ONCE 08/23/21 13:00 08/23/21 13:09 DC Ondansetron HCl (Zofran) 4 mg 1X ONCE 08/23/21 13:00 08/23/21 13:09 DC Sodium Chloride 1,000 ml @ 1,000 mls/hr 1X ONCE 08/23/21 13:00 08/23/21 13:59 Allergies: Allergies: Allergies Coded Allergies Type Severity Reaction Last Updated Verified cephalexin Allergy Severe shortness of breath 12/06/15 Yes Tetracyclines Allergy Intermediate palpatations 12/06/15 Yes erythromycin base Allergy Intermediate vomiting 12/06/15 Yes metronidazole Allergy Intermediate palpatations, nausea, intestinal noise, numbness 12/06/15 Yes omeprazole Allergy Intermediate chest pain 12/06/15 Yes pantoprazole Allergy Intermediate headache 12/06/15 Yes shrimp Allergy Intermediate facial flushing 12/06/15 Yes Physical Exam: PE: Constitutional: Well developed, well nourished, no acute distress, non-toxic appearance HENT: Normocephalic, atraumatic Eyes: PERRL, EOMI, conjunctiva normal, no discharge, no nystagmus noted Neck: Normal range of motion, no tenderness, supple, no meningeal signs Lungs & Thorax: No respiratory distress, equal chest rise and fall Abdomen: Soft, no tenderness Skin: Warm, dry, no erythema, no rash Back: No tenderness, no CVA tenderness Extremities: No tenderness, ROM intact, no edema Neurologic: Alert and oriented X 3, normal motor function, normal sensory function, no focal deficits noted Psychologic: Affect anxious, judgment normal Current Patient Data: Vital Signs: Vital Signs Date Time Temp Pulse Resp B/P (MAP) Pulse Ox O2 Delivery O2 Flow Rate FiO2 08/23/21 12:30 97.9 73 18 183/89 (120) 98 Room Air 97.9 EKG: EKG: @1235 NSR at 74bpm, NO ST elevation, RBBB, QRS 130ms, QT/QTc 370/416ms Radiology/Procedures: Radiology/Procedures: PROCEDURE: PORTABLE CHEST 1V XR CHEST 1V History: Weakness Comparison: 02/21/2017 Technique: Portable AP radiograph of the chest. Findings: The lungs are adequately inflated. Chronic mildly increased interstitial opacities. No airspace consolidation, pleural effusion or pneumothorax. The cardiomediastinal silhouette and pulmonary vasculature are within normal limits. Calcification of the aortic arch. No acute osseous abnormality. Soft tissues are unremarkable. Impression: 1. No acute cardiopulmonary process. Electronically signed by: Jim Olivier MD (08/23/2021 1:06 PM) [facility] PROCEDURE: CT HEAD WO CONTRAST CT HEAD/BRAIN WO dated 08/23/2021 1:05 PM. Comparison: CT 02/17/2017. Clinical Indication: Reason: dizziness, HTN / Spl. Instructions: / History: Technical factors: Contiguous 5 mm axial images of the head were obtained from the skullbase to the vertex. No contrast was administered. Findings: There is no apparent intracranial mass, hemorrhage or abnormal extra-axial fluid collection. Diffuse low-attenuation is again seen through the cerebral white matter, and may relate to hypertension/chronic small vessel ischemic change. No definite new area of abnormal density is seen. The ventricles and basilar cisterns are normally positioned. The sinuses and mastoid air cells are clear. Impression: No evidence of acute intracranial abnormality. Electronically signed by: Rajiv Beauchamp Jr., MD (08/23/2021 1:21 PM) [facility] Course & Med Decision Making: Course & Med Decision Making Pertinent Labs and Imaging studies reviewed. (See chart for details) Anxious elderly patient presents with report of dizziness with associated nausea and vomiting. Patient does have a history of vertigo. Symptoms appear more consistent with vertigo. Denies trauma. NIHSS 0. CT head without acute process. Labs obtained and posted to chart. Patient requiring several doses of medication for dizziness. IV fluid hydration given. Given patient's reported change in symptoms from her prior episodes of vertigo will admit for further evaluation. Patient requiring admission for further evaluation and treatment. Discussed with Dr. Franco (hospitalist) who is in agreement with admission. Neurology consult placed. Discussed findings and plan with patient and family, who acknowledge understanding and agreement. Zeke Disclaimer: Zeke Disclaimer: This electronic medical record was generated, in whole or in part, using a voice recognition dictation system. Departure Departure Impression: Primary Impression: Dizziness Disposition: ADMITTED INPATIENT Admitting Physician: JENNIFER Bonilla) Condition: STABLE Referrals: JAZMYNE BLAKE MD (PCP) NIHSS Stroke Scale NIH Stroke Scale: NIH Stroke Scale Response (Comments) Value Level of Consciousness: 0 Alert/Responsive 0 LOC Questions: 0 Answers both correctly 0 LOC Commands: 0 Performs both tasks 0 Best Gaze: 0 Normal 0 Visual: 0 No visual loss 0 Facial Palsy: 0 Normal, symmetrical 0 Motor - Left Arm 0 No drift 0 Motor - Right Arm 0 No drift 0 Motor - Left Leg 0 No drift 0 Motor: Right Leg 0 No drift 0 Limb Ataxia: 0 Absent 0 Sensory: 0 No loss 0 Best Language: 0 Normal 0 Dysathria: 0 Normal 0 Extinction and Inattention: 0 Normal 0 Total 0 GIBBONS,DUANE Bowens DO Aug 23, 2021 13:38
[2021-08-23 13:39] LABS: BACTERIA,URINE 0 /HPF (0-FEW); RBC,URINE 0 /HPF (0-2)
[2021-08-23 13:53] LABS: BASO % 1 % (0-3); EOS % 1 % (0-3); HEMATOCRIT 42.6 % (36.0-47.0); HEMOGLOBIN 14.8 g/dL (12.0-15.5); LYMPH # 1.6 x10^3/uL (1.0-4.8); LYMPH % 20 % (24-48); MEAN CORPUSCULAR HEMOGLOBIN 30 pg (25-35); MEAN CORPUSCULAR HGB CONC 35 g/dL (31-37); MEAN CORPUSCULAR VOLUME 88 fL (79-100); MONO # 0.7 x10^3/uL (0.0-1.1); MONO % 9 % (0-9); NEUT # 5.5 x10^3/uL (1.8-7.7); NEUT % 70 % (31-73); PLATELET COUNT 291 x10^3/uL (140-400); RED BLOOD COUNT 4.86 x10^6/uL (3.50-5.40); RED CELL DISTRIBUTION WIDTH 13.4 % (11.5-14.5); WHITE BLOOD COUNT 7.8 x10^3/uL (4.0-11.0)
[2021-08-23] MEDS ORDERED: diazePAM 2 MG TABLET PO ONE (14:15)
[2021-08-23 14:17] LABS: CALCIUM 9.1 mg/dL (8.5-10.1); GFR 54.2; POTASSIUM 3.9 mmol/L (3.5-5.1)
[2021-08-23 14:19] LABS: ALBUMIN 3.7 g/dL (3.4-5.0); ALBUMIN/GLOBULIN RATIO 0.9 (1.0-1.7); TOTAL BILIRUBIN 0.5 mg/dL (0.2-1.0); TOTAL PROTEIN 7.9 g/dL (6.4-8.2)
[2021-08-23 14:26] LABS: CREATINE KINASE 71 U/L (26-192)
[2021-08-23] MEDS ORDERED: ONDANSETRON PF 4 MG/2 ML VIAL. IVP PRN (15:00)
[2021-08-23] MEDS ORDERED: ASPIRIN ENTERIC COATED 325 MG TABLET.DR. PO ONE (15:00)
[2021-08-23 16:58] VITALS: BP 176/91
[2021-08-23] MEDS ORDERED: LORazepam 0.5 MG TABLET PO PRN (17:15)
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
[2021-08-23] MEDS: ACETAMINOPHEN 325 MG TABLET. PO SCH (18:00)
[2021-08-23] MEDS ORDERED: cefTRIAXone IV Push 1 GM VIAL. IVP SCH (18:00)
[2021-08-23 19:00] VITALS: BP 153/75
[2021-08-23 23:21] VITALS: BP 154/80
[2021-08-24] MEDS: ACETAMINOPHEN 325 MG TABLET. PO SCH
[2021-08-24] MEDS ORDERED: ACETAMINOPHEN 325 MG TABLET. PO PRN (01:45)
[2021-08-24 03:12] VITALS: BP 161/90
[2021-08-24 07:00] VITALS: BP 151/93
[2021-08-24] MEDS ORDERED: LISINOPRIL 5 MG TABLET. PO SCH (09:00)
[2021-08-24] MEDS: ASPIRIN CHEWABLE 81 MG TABLET. PO SCH (09:04)
[2021-08-24] MEDS ORDERED: MAGNESIUM HYDROXIDE 2,400 MG/30 ML ORAL.SUSP. PO PRN (10:00)
[2021-08-24] MEDS ORDERED: MECLIZINE HCL 12.5 MG TABLET. PO PRN (10:30)
--- NOTE | 2021-08-24 10:33 | PDOC2 ---
NEUROLOGY CONSULT Date of Service DOS: DATE: 08/24/21 TIME: 10:20 Reason for Consult Reason for Consult: Dizziness Referring Physician Referring Physician: Dr. Franco Source Source: Chart review, Patient History of Present Illness History of Present Illness The patient is a 75-year-old right-handed female who came to the emergency department yesterday with vertigo. She was sitting down when she noticed onset of true vertigo. It was worse when she laid down or stood, better when she was seated, but still present. She felt like she was turning to the right. She denies hearing loss. She describes having a successful Alyssa maneuver in the past for vertigo, but does not like the way it made her feel during it. I saw her in the office in 2017 for headaches, nonspecific white matter changes on MRI, and at that time she also had dizziness and numerous other neurological symptoms. She had a head injury and a fall 4 months ago and underwent a brain MRI, reviewed below. Since then, she has had tinnitus and fortification spectra in her eyes. She has seen an eye doctor who tells her that she has cataracts. She does have a history of headaches in her 40s with throbbing pain and possibly photo phonophobia and nausea. She does not have headaches now. There is no history of stroke or seizure. She is very concerned about the diagnosis of ur inary tract infection, does not know why she has one. She has some chronic neck pain. Past Medical History Cardiovascular: HTN Pulmonary: Bronchitis GI: GERD, Other (Hiatal hernia) Psych: Anxiety Musculoskeletal: low back pain, Osteoarthritis ENT: Other (Cataracts, has not had surgery) Renal/: UTI Endocrine: Diabetes (Prediabetes) Past Surgical History Past Surgical History: No pertinent history Family History Family History: CAD, DM Social History Social History Lives with son and [id number], no alcohol or tobacco Current Medications Current Medications Current Medications Sodium Chloride 1,000 ml @ 1,000 mls/hr 1X ONCE IV Last administered on 08/23/21at 13:36; Start 08/23/21 at 13:00; Stop 08/23/21 at 13:59; Status DC Dexamethasone Sodium Phosphate (Decadron) 10 mg 1X ONCE IVP ; Start 08/23/21 at 13:00; Stop 08/23/21 at 13:09; Status DC Ondansetron HCl (Zofran) 4 mg 1X ONCE IVP ; Start 08/23/21 at 13:00; Stop 08/23/21 at 13:09; Status DC Meclizine HCl (Antivert) 25 mg 1X ONCE PO ; Start 08/23/21 at 13:00; Stop 08/23/21 at 13:09; Status DC Dexamethasone Sodium Phosphate (Decadron) 20 mg STK-MED ONCE .ROUTE ; Start 08/23/21 at 13:06; Stop 08/23/21 at 13:07; Status DC Diazepam (Valium) 2 mg 1X ONCE PO Last administered on 08/23/21at 15:15; Start 08/23/21 at 14:15; Stop 08/23/21 at 14:29; Status DC Dexamethasone Sodium Phosphate (Decadron) 10 mg 1X ONCE IVP Last administered on 08/23/21at 15:16; Start 08/23/21 at 14:15; Stop 08/23/21 at 14:29; Status DC Ondansetron HCl (Zofran) 4 mg 1X ONCE IVP Last administered on 08/23/21at 15:15; Start 08/23/21 at 14:15; Stop 08/23/21 at 14:29; Status DC Aspirin (Ecotrin) 325 mg 1X ONCE PO Last administered on 08/23/21at 15:15; Start 08/23/21 at 15:00; Stop 08/23/21 at 15:04; Status DC Ondansetron HCl (Zofran) 4 mg PRN Q8HRS PRN IVP NAUSEA/VOMITING; Start 08/23/21 at 15:00; Stop 08/24/21 at 14:59 Acetaminophen (Tylenol) 650 mg Q6HRS PO ; Start 08/23/21 at 18:00; Stop 08/24/21 at 01:40; Status DC Aspirin (Aspirin Chewable) 81 mg DAILY PO Last administered on 08/24/21at 09:04; Start 08/24/21 at 09:00 Lisinopril (Prinivil) 5 mg DAILY PO ; Start 08/24/21 at 09:00; Status UNV Lorazepam (Ativan) 0.5 mg PRN Q8HRS PRN PO anxiety; Start 08/23/21 at 17:15 Amlodipine Besylate (Norvasc) 2.5 mg DAILY PO Last administered on 08/24/21at 09:04; Start 08/23/21 at 18:30 Ceftriaxone Sodium (Rocephin) 1 gm Q24H IVP Last administered on 08/23/21at 18: 08; Start 08/23/21 at 18:00 Acetaminophen (Tylenol) 650 mg PRN Q6HRS PRN PO MILD PAIN / TEMP > 100.3'F; Start 08/24/21 at 01:45 Magnesium Hydroxide (Milk Of Magnesia) 2,400 mg PRN DAILY PRN PO CONSTIPATION; Start 08/24/21 at 10:00 Active Scripts Active Ativan (Lorazepam) 0.5 Mg Tablet 0.5 Mg PO HS PRN PRN 60 Days Lisinopril 5 Mg Tablet 1 Tab PO DAILY 60 Days Reported Children's Aspirin (Aspirin) 81 Mg Tab.chew 1 Tab PO DAILY 30 Days Tylenol (Acetaminophen) 325 Mg Tablet 650 Mg PO Q6HRS Allergies Allergies: Coded Allergies: cephalexin (Verified Allergy, Severe, shortness of breath, 12/06/15) Tetracyclines (Verified Allergy, Intermediate, palpatations, 12/06/15) shrimp (Verified Allergy, Intermediate, facial flushing, 12/06/15) erythromycin base (Verified Adverse Reaction, Intermediate, vomiting, 08/24/21) metronidazole (Verified Adverse Reaction, Intermediate, palpatations, nausea, intestinal noise, numbness, 08/24/21) omeprazole (Verified Adverse Reaction, Intermediate, chest pain, 08/24/21) pantoprazole (Verified Adverse Reaction, Intermediate, headache, 08/24/21) ROS Review of System Negative for fever, chills, weight loss, shortness of breath, chest pain, indigestion, hematochezia, melena, and dysuria. Full 14-point review of systems is negative. Physical Exam Physical Examination General: Well-developed, well-nourished, white female, in no acute distress HEENT: Normocephalic andatraumatic. Tympanic membranes clear.Temporal arter iespulsatile and nontender. Neck: Supple without bruit, no meningismus Musculoskeletal: Stability:see neurologic. Gait exam:see neurologic. Tone:see neurologic.Strength:see neurologic. Neurological: Mental Status:intact, orientation, memory, attention span/concentration, language, fund of knowledge normal. Cranial Nerves:Pupils equal and reactive to light, extraocular movements areintact, visual dinero are full to confrontation. Facial sensation is normal. There is no facial asymmetry. Vestibulo-ocular reflex is intact. Has nystagmus with head hanging right on Herlinda-Hallpike. Palate elevates and tongue protrudes in midline. All other cranial related problems are negative except as mentioned before.Reflexes:2+ and symmetric with flexor plantar responses. Motor:5/5 strength with normal tone and bulk. Coordination:Finger-nose finger and [id number]-[id number] testing are normal. Rapid alternating movements and fine finger movements are intact. Gait:Unsteady, only able to take a couple steps. Sensory:Normal pinprick, vibration, light touch, proprioception. Vitals VITALS Vital Signs Date Time Temp Pulse Resp B/P (MAP) Pulse Ox O2 Delivery O2 Flow Rate FiO2 08/24/21 09:04 90 151/93 08/24/21 07:00 97.4 18 94 97.4 08/24/21 03:12 Room Air Labs Labs Laboratory Tests Test 08/23/21 12:47 08/23/21 13:30 08/23/21 18:30 08/23/21 21:00 Urine Collection Type Unknown Urine Color Yellow Urine Clarity Clear Urine pH 6.0 (<5.0-8.0) Urine Specific [place] 1.025 (1.000-1.030) Urine Protein Negative mg/dL (NEG-TRACE) Urine Glucose (UA) Negative mg/dL (NEG) Urine Ketones (Stick) Trace mg/dL (NEG) Urine Blood Negative (NEG) Urine Nitrite Negative (NEG) Urine Bilirubin Negative (NEG) Urine Urobilinogen Dipstick 0.2 mg/dL (0.2 mg/dL) Urine Leukocyte Esterase Moderate (NEG) Urine RBC 0 /HPF (0-2) Urine WBC 5-10 /HPF (0-4) Urine Squamous Epithelial Cells Few /LPF Urine Bacteria 0 /HPF (0-FEW) Urine Mucus Slight /LPF White Blood Count 7.8 x10^3/uL (4.0-11.0) Red Blood Count 4.86 x10^6/uL (3.50-5.40) Hemoglobin 14.8 g/dL (12.0-15.5) Hematocrit 42.6 % (36.0-47.0) Mean Corpuscular Volume 88 fL (79-100) Mean Corpuscular Hemoglobin 30 pg (25-35) Mean Corpuscular Hemoglobin Concent 35 g/dL (31-37) Red Cell Distribution Width 13.4 % (11.5-14.5) Platelet Count 291 x10^3/uL (140-400) Neutrophils (%) (Auto) 70 % (31-73) Lymphocytes (%) (Auto) 20 % (24-48) Monocytes (%) (Auto) 9 % (0-9) Eosinophils (%) (Auto) 1 % (0-3) Basophils (%) (Auto) 1 % (0-3) Neutrophils # (Auto) 5.5 x10^3/uL (1.8-7.7) Lymphocytes # (Auto) 1.6 x10^3/uL (1.0-4.8) Monocytes # (Auto) 0.7 x10^3/uL (0.0-1.1) Eosinophils # (Auto) 0.0 x10^3/uL (0.0-0.7) Basophils # (Auto) 0.0 x10^3/uL (0.0-0.2) Sodium Level 132 mmol/L (136-145) Potassium Level 3.9 mmol/L (3.5-5.1) Chloride Level 97 mmol/L (98-107) Carbon Dioxide Level 24 mmol/L (21-32) Anion Gap 11 (6-14) Blood Urea Nitrogen 14 mg/dL (7-20) Creatinine 1.0 mg/dL (0.6-1.0) Estimated GFR (Cockcroft-Gault) 54.2 BUN/Creatinine Ratio 14 (6-20) Glucose Level 104 mg/dL (70-99) Lactic Acid Level 0.9 mmol/L (0.4-2.0) Calcium Level 9.1 mg/dL (8.5-10.1) Magnesium Level 2.0 mg/dL (1.8-2.4) Total Bilirubin 0.5 mg/dL (0.2-1.0) Aspartate Amino Transf (AST/SGOT) 13 U/L (15-37) Alanine Aminotransferase (ALT/SGPT) 16 U/L (14-59) Alkaline Phosphatase 57 U/L (46-116) Creatine Kinase 71 U/L (26-192) Creatine Kinase MB (Mass) 1.3 ng/mL (0.0-3.6) Creatine Kinase MB Relative Index % (0-4) Troponin I Quantitative < 0.017 ng/mL (0.000-0.055) < 0.017 ng/mL (0.000-0.055) < 0.017 ng/mL (0.000-0.055) Total Protein 7.9 g/dL (6.4-8.2) Albumin 3.7 g/dL (3.4-5.0) Albumin/Globulin Ratio 0.9 (1.0-1.7) Laboratory Tests Test 08/23/21 12:47 08/23/21 13:30 08/23/21 18:30 08/23/21 21:00 Urine Collection Type Unknown Urine Color Yellow Urine Clarity Clear Urine pH 6.0 (<5.0-8.0) Urine Specific [place] 1.025 (1.000-1.030) Urine Protein Negative mg/dL (NEG-TRACE) Urine Glucose (UA) Negative mg/dL (NEG) Urine Ketones (Stick) Trace mg/dL (NEG) Urine Blood Negative (NEG) Urine Nitrite Negative (NEG) Urine Bilirubin Negative (NEG) Urine Urobilinogen Dipstick 0.2 mg/dL (0.2 mg/dL) Urine Leukocyte Esterase Moderate (NEG) Urine RBC 0 /HPF (0-2) Urine WBC 5-10 /HPF (0-4) Urine Squamous Epithelial Cells Few /LPF Urine Bacteria 0 /HPF (0-FEW) Urine Mucus Slight /LPF White Blood Count 7.8 x10^3/uL (4.0-11.0) Red Blood Count 4.86 x10^6/uL (3.50-5.40) Hemoglobin 14.8 g/dL (12.0-15.5) Hematocrit 42.6 % (36.0-47.0) Mean Corpuscular Volume 88 fL (79-100) Mean Corpuscular Hemoglobin 30 pg (25-35) Mean Corpuscular Hemoglobin Concent 35 g/dL (31-37) Red Cell Distribution Width 13.4 % (11.5-14.5) Platelet Count 291 x10^3/uL (140-400) Neutrophils (%) (Auto) 70 % (31-73) Lymphocytes (%) (Auto) 20 % (24-48) Monocytes (%) (Auto) 9 % (0-9) Eosinophils (%) (Auto) 1 % (0-3) Basophils (%) (Auto) 1 % (0-3) Neutrophils # (Auto) 5.5 x10^3/uL (1.8-7.7) Lymphocytes # (Auto) 1.6 x10^3/uL (1.0-4.8) Monocytes # (Auto) 0.7 x10^3/uL (0.0-1.1) Eosinophils # (Auto) 0.0 x10^3/uL (0.0-0.7) Basophils # (Auto) 0.0 x10^3/uL (0.0-0.2) Sodium Level 132 mmol/L (136-145) Potassium Level 3.9 mmol/L (3.5-5.1) Chloride Level 97 mmol/L (98-107) Carbon Dioxide Level 24 mmol/L (21-32) Anion Gap 11 (6-14) Blood Urea Nitrogen 14 mg/dL (7-20) Creatinine 1.0 mg/dL (0.6-1.0) Estimated GFR (Cockcroft-Gault) 54.2 BUN/Creatinine Ratio 14 (6-20) Glucose Level 104 mg/dL (70-99) Lactic Acid Level 0.9 mmol/L (0.4-2.0) Calcium Level 9.1 mg/dL (8.5-10.1) Magnesium Level 2.0 mg/dL (1.8-2.4) Total Bilirubin 0.5 mg/dL (0.2-1.0) Aspartate Amino Transf (AST/SGOT) 13 U/L (15-37) Alanine Aminotransferase (ALT/SGPT) 16 U/L (14-59) Alkaline Phosphatase 57 U/L (46-116) Creatine Kinase 71 U/L (26-192) Creatine Kinase MB (Mass) 1.3 ng/mL (0.0-3.6) Creatine Kinase MB Relative Index % (0-4) Troponin I Quantitative < 0.017 ng/mL (0.000-0.055) < 0.017 ng/mL (0.000-0.055) < 0.017 ng/mL (0.000-0.055) Total Protein 7.9 g/dL (6.4-8.2) Albumin 3.7 g/dL (3.4-5.0) Albumin/Globulin Ratio 0.9 (1.0-1.7) Images Images CT HEAD/BRAIN WO dated 08/23/2021 1:05 PM. Comparison: CT 02/17/2017. Clinical Indication: Reason: dizziness, HTN / Spl. Instructions: / History: Technical factors: Contiguous 5 mm axial images of the head were obtained from the skullbase to the vertex. No contrast was administered. Findings: There is no apparent intracranial mass, hemorrhage or abnormal extra-axial fluid collection. Diffuse low-attenuation is again seen through the cerebral white matter, and may relate to hypertension/chronic small vessel ischemic change. No definite new area of abnormal density is seen. The ventricles and basilar cisterns are normally positioned. The sinuses and mastoid air cells are clear. Impression: No evidence of acute intracranial abnormality. MRI BRAIN WITHOUT CONTRAST, 06/11/21 (retrieved from website with patient's verbal permission): TECHNIQUE: 0.3T MR: Multiplanar/multisequence noncontrast brain protocol. Sequences shortened given patients difficulty lying still and confusion. INDICATION: Dizziness, confusion. Concern for stroke. COMPARISON: None. FINDINGS: BRAIN/MENINGES: The ventricles and sulci are within normal limits for age. FLAIR hyperintensities in the supratentorial white matter, both patchy and confluent areas of FLAIR hyperintensity, are nonspecific but most suggestive of moderate small vessel ischemic disease. Similar but less severe findings are noted in the arslan. There is no acute intracranial hemorrhage or extra-axial fluid collection. There is no mass effect or midline shift. There is no large area of restricted diffusion to suggest an acute infarct. CRANIAL NERVES: Cranial nerves and basilar foramina appear normal as visualized. PARASELLAR: A partial empty sella turcica is present. The pituitary gland, infundibulum, suprasellar cistern and cavernous sinuses otherwise appear normal. SINONASAL: Nasal fossa, nasopharynx and parapharyngeal fascia appear normal. Minimal ethmoid and maxillary mucosal thickening noted. CRANIOFACIAL: Craniocervical junction and upper visualized cervical spine appear normal. Orbits appear normal as visualized. Mastoid and petrous air cells are clear. VASCULATURE: Visualized intracranial flow voids are preserved. IMPRESSION: 1. No acute intracranial findings. No evidence of an acute infarct. 2. Brain parenchymal volume loss and moderate probable small vessel ischemic disease. MRI cervical spine without contrast, Jan 06, 2016. HISTORY Chronic neck pain, bilateral shoulder pain and headaches TECHNIQUE Sagittal and axial T2, sagittal T1, sagittal STIR images were acquired of the cervical spine. Contrast: None. COMPARISON None FINDINGS Cervical vertebral body stature is overall preserved. There is very minimal grade 1 anterior spondylolisthesis C3-4 and C4-5. Cervical cord caliber is within normal limits without significant focal signal abnormality. There is mild degenerative disc disease C5-C6 and C6-7. There is no significant abnormality of the cervical medullary junction. There is mild edema associated with superior Schmorl's node on the right at C7. There is more focal somewhat round focus of edema associated the dorsal left C3 lateral mass/ facet articulation up to 0.9 cm. C2-3: Spinal canal and neural foramina are adequate. There is negligible posterior central protrusion. C3-C4: Neural foramina and spinal canal are adequate. C4-5: Spinal canal and neural foramina are adequate. There is facet hypertrophic change greater on the right. C5-C6: There is a minimal posterior disc osteophyte complex and bulge. Spinal canal and neural foramina are adequate. C6-7: There is a negligible posterior bulge. Spinal canal and neural foramina are adequate. C7-T1: Spinal canal and neural foramina are adequate. IMPRESSION 1. There is mild degenerative disc disease C5-C6 and C6-7, minimal spondylosis. 2. There is no significant cervical spinal stenosis or neural foramina compromise. 3. There is very minimal grade 1 anterior spondylolisthesis C3-4 and C4-5. 4. There is nonspecific focus of edema involving the dorsal left lateral mass/facet articulation at C3. This could be reactive in etiology although underlying marrow lesion difficult to entirely exclude by this exam. Assessment/Plan Assessment/Plan Impression: Right horizontal benign paroxysmal positional vertigo Recent fall with minor head injury Migraine phenomenon, history of migraine Essentially normal brain MRI for age done recently and she is also had MRI studies in the past Cervical spondylosis on the most recent MRI cervical spine I have available from 4 years ago. No evidence of cervical radiculopathy or myelopathy. Recommendations: Vestibular physical therapy, to perform Alyssa maneuver if indicated Continue aspirin Physical therapy Hold off on repeat cervical imaging studies We discussed the nature of migraine phenomenon. I believe that the risks outweigh the benefits of starting antimigraine therapy but if she remains troubled by the visual symptoms, and cataract surgery does not help, we could revisit this. Meclizine as needed, only on a short-term basis Thank you for letting me help with the patient's care. ONEL FERGUSON MD Aug 24, 2021 10:32
[2021-08-24 11:00] VITALS: BP 147/75
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
--- NOTE | 2021-08-24 14:04 | NUR ---
SW following. Discussed with RN, pt from home with , room air, clear liquid diet. Dr. Glasgow and Neuro following. RN advised no SW needs at this time. SW will continue to follow.
[2021-08-24 15:00] VITALS: BP 135/65
--- NOTE | 2021-08-24 15:24 | NUR ---
Patient refused Meclizine for dizziness, stating "It hurts my kidneys and I can't take it." Patient still c/o dizziness and has had multiple complaints today, including that she felt her heart was racing. Her heart rate at that time was 100bpm. I went over breathing exercises with her to help her calm herself. I offered her a lorazepam for anxiety, but she refused this medication as well. I will continue to monitor patient for changes.
[2021-08-24 22:51] VITALS: BP 136/78
[2021-08-25 03:00] VITALS: BP 159/78
[2021-08-25 07:00] VITALS: BP 125/76
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
[2021-08-25] MEDS: ASPIRIN CHEWABLE 81 MG TABLET. PO SCH (08:43)
--- NOTE | 2021-08-25 09:48 | PDOC ---
PROGRESS NOTES Date of Service DATE: 08/25/21 TIME: 09:46 Subjective Subjective She feels better. Objective Objective Vital Signs Date Time Temp Pulse Resp B/P (MAP) Pulse Ox O2 Delivery O2 Flow Rate FiO2 08/25/21 08:30 Room Air 08/25/21 07:00 98.3 68 18 125/76 (92) 99 98.3 Intake and Output 08/25/21 07:00 Intake Total 440 ml Output Total 600 ml Balance -160 ml Intake Oral 440 ml Output Urine Total 600 ml # Voids 3 Physical Exam Physical Exam She is alert,sitting at edge of bed and seems to be comfortable and she is walking with roller walker and physical therapy to see her today. Assessment Assessment Problems Medical Problems: (1) Dizziness Status: Acute Plan Plan of [place] when medically stable with out patient or home health physical therapy follow up. Comment Review of Relevant I have reviewed the following items barbara (where applicable) has been applied. Labs Laboratory Tests Test 08/23/21 12:47 08/23/21 13:30 08/23/21 18:30 08/23/21 21:00 Urine Collection Type Unknown Urine Color Yellow Urine Clarity Clear Urine pH 6.0 (<5.0-8.0) Urine Specific [place] 1.025 (1.000-1.030) Urine Protein Negative mg/dL (NEG-TRACE) Urine Glucose (UA) Negative mg/dL (NEG) Urine Ketones (Stick) Trace mg/dL (NEG) Urine Blood Negative (NEG) Urine Nitrite Negative (NEG) Urine Bilirubin Negative (NEG) Urine Urobilinogen Dipstick 0.2 mg/dL (0.2 mg/dL) Urine Leukocyte Esterase Moderate (NEG) Urine RBC 0 /HPF (0-2) Urine WBC 5-10 /HPF (0-4) Urine Squamous Epithelial Cells Few /LPF Urine Bacteria 0 /HPF (0-FEW) Urine Mucus Slight /LPF White Blood Count 7.8 x10^3/uL (4.0-11.0) Red Blood Count 4.86 x10^6/uL (3.50-5.40) Hemoglobin 14.8 g/dL (12.0-15.5) Hematocrit 42.6 % (36.0-47.0) Mean Corpuscular Volume 88 fL (79-100) Mean Corpuscular Hemoglobin 30 pg (25-35) Mean Corpuscular Hemoglobin Concent 35 g/dL (31-37) Red Cell Distribution Width 13.4 % (11.5-14.5) Platelet Count 291 x10^3/uL (140-400) Neutrophils (%) (Auto) 70 % (31-73) Lymphocytes (%) (Auto) 20 % (24-48) Monocytes (%) (Auto) 9 % (0-9) Eosinophils (%) (Auto) 1 % (0-3) Basophils (%) (Auto) 1 % (0-3) Neutrophils # (Auto) 5.5 x10^3/uL (1.8-7.7) Lymphocytes # (Auto) 1.6 x10^3/uL (1.0-4.8) Monocytes # (Auto) 0.7 x10^3/uL (0.0-1.1) Eosinophils # (Auto) 0.0 x10^3/uL (0.0-0.7) Basophils # (Auto) 0.0 x10^3/uL (0.0-0.2) Sodium Level 132 mmol/L (136-145) Potassium Level 3.9 mmol/L (3.5-5.1) Chloride Level 97 mmol/L (98-107) Carbon Dioxide Level 24 mmol/L (21-32) Anion Gap 11 (6-14) Blood Urea Nitrogen 14 mg/dL (7-20) Creatinine 1.0 mg/dL (0.6-1.0) Estimated GFR (Cockcroft-Gault) 54.2 BUN/Creatinine Ratio 14 (6-20) Glucose Level 104 mg/dL (70-99) Lactic Acid Level 0.9 mmol/L (0.4-2.0) Calcium Level 9.1 mg/dL (8.5-10.1) Magnesium Level 2.0 mg/dL (1.8-2.4) Total Bilirubin 0.5 mg/dL (0.2-1.0) Aspartate Amino Transf (AST/SGOT) 13 U/L (15-37) Alanine Aminotransferase (ALT/SGPT) 16 U/L (14-59) Alkaline Phosphatase 57 U/L (46-116) Creatine Kinase 71 U/L (26-192) Creatine Kinase MB (Mass) 1.3 ng/mL (0.0-3.6) Creatine Kinase MB Relative Index % (0-4) Troponin I Quantitative < 0.017 ng/mL (0.000-0.055) < 0.017 ng/mL (0.000-0.055) < 0.017 ng/mL (0.000-0.055) Total Protein 7.9 g/dL (6.4-8.2) Albumin 3.7 g/dL (3.4-5.0) Albumin/Globulin Ratio 0.9 (1.0-1.7) Microbiology 08/23/21 Urine Culture - Final, Complete Medications Current Medications Sodium Chloride 1,000 ml @ 1,000 mls/hr 1X ONCE IV Last administered on 1 at 13:36; Start 08/23/21 at 13:00; Stop 08/23/21 at 13:59; Status DC Dexamethasone Sodium Phosphate (Decadron) 10 mg 1X ONCE IVP ; Start 08/23/21 at 13:00; Stop 08/23/21 at 13:09; Status DC Ondansetron HCl (Zofran) 4 mg 1X ONCE IVP ; Start 08/23/21 at 13:00; Stop 08/23/21 at 13:09; Status DC Meclizine HCl (Antivert) 25 mg 1X ONCE PO ; Start 08/23/21 at 13:00; Stop 08/23/21 at 13:09; Status DC Dexamethasone Sodium Phosphate (Decadron) 20 mg STK-MED ONCE .ROUTE ; Start 08/23/21 at 13:06; Stop 08/23/21 at 13:07; Status DC Diazepam (Valium) 2 mg 1X ONCE PO Last administered on 08/23/21at 15:15; Start 08/23/21 at 14:15; Stop 08/23/21 at 14:29; Status DC Dexamethasone Sodium Phosphate (Decadron) 10 mg 1X ONCE IVP Last administered on 08/23/21at 15:16; Start 08/23/21 at 14:15; Stop 08/23/21 at 14:29; Status DC Ondansetron HCl (Zofran) 4 mg 1X ONCE IVP Last administered on 08/23/21at 15:15; Start 08/23/21 at 14:15; Stop 08/23/21 at 14:29; Status DC Aspirin (Ecotrin) 325 mg 1X ONCE PO Last administered on 08/23/21at 15:15; Start 08/23/21 at 15:00; Stop 08/23/21 at 15:04; Status DC Ondansetron HCl (Zofran) 4 mg PRN Q8HRS PRN IVP NAUSEA/VOMITING; Start 08/23/21 at 15:00; Stop 08/24/21 at 14:59; Status DC Acetaminophen (Tylenol) 650 mg Q6HRS PO ; Start 08/23/21 at 18:00; Stop 08/24/21 at 01:40; Status DC Aspirin (Aspirin Chewable) 81 mg DAILY PO Last administered on 08/24/21at 09:04; Start 08/24/21 at 09:00 Lisinopril (Prinivil) 5 mg DAILY PO ; Start 08/24/21 at 09:00; Status UNV Lorazepam (Ativan) 0.5 mg PRN Q8HRS PRN PO anxiety; Start 08/23/21 at 17:15 Amlodipine Besylate (Norvasc) 2.5 mg DAILY PO Last administered on 08/24/21at 09:04; Start 08/23/21 at 18:30 Ceftriaxone Sodium (Rocephin) 1 gm Q24H IVP Last administered on 08/23/21at 18:08; Start 08/23/21 at 18:00; Stop 08/24/21 at 13:55; Status DC Acetaminophen (Tylenol) 650 mg PRN Q6HRS PRN PO MILD PAIN / TEMP > 100.3'F; Start 08/24/21 at 01:45 Magnesium Hydroxide (Milk Of Magnesia) 2,400 mg PRN DAILY PRN PO CONSTIPATION; Start 08/24/21 at 10:00 Meclizine HCl (Antivert) 12.5 mg PRN Q6HRS PRN PO DIZZINESS; Start 08/24/21 at 10:30 Active Scripts Active Ativan (Lorazepam) 0.5 Mg Tablet 0.5 Mg PO HS PRN PRN 60 Days Lisinopril 5 Mg Tablet 1 Tab PO DAILY 60 Days Reported Children's Aspirin (Aspirin) 81 Mg Tab.chew 1 Tab PO DAILY 30 Days Tylenol (Acetaminophen) 325 Mg Tablet 650 Mg PO Q6HRS Vitals/I & O Vital Sign - Last 24 Hours 08/24/21 08/24/21 08/24/21 08/24/21 11:00 15:00 20:05 22:51 Temp 97.9 97.5 97.6 97.9 97.5 97.6 Pulse 75 87 75 Resp 18 18 20 B/P (MAP) 147/75 (99) 135/65 (88) 136/78 (97) Pulse Ox 96 98 95 O2 Delivery Room Air 08/25/21 08/25/21 08/25/21 03:00 07:00 08:30 Temp 97.7 98.3 97.7 98.3 Pulse 65 68 Resp 18 18 B/P (MAP) 159/78 (105) 125/76 (92) Pulse Ox 98 99 O2 Delivery Room Air Intake and Output 08/24/21 08/24/21 08/25/21 15:00 23:00 07:00 Intake Total 440 ml Output Total 600 ml Balance 440 ml -600 ml Justifications for Admission Other Justification SAL KANG MD Aug 25, 2021 09:48
--- NOTE | 2021-08-25 10:50 | PDOC ---
PROGRESS NOTES Date of Service DATE: 08/25/21 TIME: 10:47 Assessment Problems Medical Problems: (1) Dizziness Status: Acute Right horizontal benign paroxysmal positional vertigo, resolving attack, she has had this before Recent fall with minor head injury Migraine phenomenon, history of migraine Essentially normal brain MRI for age done recently and she is also had MRI studies in the past Cervical spondylosis on the most recent MRI cervical spine I have available from 4 years ago. No evidence of cervical radiculopathy or myelopathy. Plan Vestibular physical therapy, to perform Alyssa maneuver if indicated Continue aspirin Physical therapy Hold off on repeat cervical imaging studies We discussed the nature of migraine phenomenon. I believe that the risks outwe igh the benefits of starting antimigraine therapy but if she remains troubled by the visual symptoms, and cataract surgery does not help, we could revisit this. She does not want to take meclizine, she says it causes kidney pain Okay for discharge when cleared through physical therapy Follow-up with me in 2 months. Also discussed with Subjective Feels better Objective Vital Signs Date Time Temp Pulse Resp B/P (MAP) Pulse Ox O2 Delivery O2 Flow Rate FiO2 08/25/21 08:30 Room Air 08/25/21 07:00 98.3 68 18 125/76 (92) 99 98.3 Intake and Output 08/25/21 07:00 Intake Total 440 ml Output Total 600 ml Balance -160 ml Intake Oral 440 ml Output Urine Total 600 ml # Voids 3 PHYSICAL EXAM Physical Exam: Alert. Oriented to time, place and person. PERRL. EOMI. no nystagmus elicited CN: no focal findings. Muscle tone: normal. Muscle strength: 5/5 DTR: 2+ Plantar reflex: Flexor Gait: not examined in bed. Sensory exam: Slight stocking loss. No cerebellar signs elicited. Review of Relevant I have reviewed the following items barbara (where applicable) has been applied. Labs Laboratory Tests Test 08/23/21 12:47 08/23/21 13:30 08/23/21 18:30 08/23/21 21:00 Urine Collection Type Unknown Urine Color Yellow Urine Clarity Clear Urine pH 6.0 (<5.0-8.0) Urine Specific [place] 1.025 (1.000-1.030) Urine Protein Negative mg/dL (NEG-TRACE) Urine Glucose (UA) Negative mg/dL (NEG) Urine Ketones (Stick) Trace mg/dL (NEG) Urine Blood Negative (NEG) Urine Nitrite Negative (NEG) Urine Bilirubin Negative (NEG) Urine Urobilinogen Dipstick 0.2 mg/dL (0.2 mg/dL) Urine Leukocyte Esterase Moderate (NEG) Urine RBC 0 /HPF (0-2) Urine WBC 5-10 /HPF (0-4) Urine Squamous Epithelial Cells Few /LPF Urine Bacteria 0 /HPF (0-FEW) Urine Mucus Slight /LPF White Blood Count 7.8 x10^3/uL (4.0-11.0) Red Blood Count 4.86 x10^6/uL (3.50-5.40) Hemoglobin 14.8 g/dL (12.0-15.5) Hematocrit 42.6 % (36.0-47.0) Mean Corpuscular Volume 88 fL (79-100) Mean Corpuscular Hemoglobin 30 pg (25-35) Mean Corpuscular Hemoglobin Concent 35 g/dL (31-37) Red Cell Distribution Width 13.4 % (11.5-14.5) Platelet Count 291 x10^3/uL (140-400) Neutrophils (%) (Auto) 70 % (31-73) Lymphocytes (%) (Auto) 20 % (24-48) Monocytes (%) (Auto) 9 % (0-9) Eosinophils (%) (Auto) 1 % (0-3) Basophils (%) (Auto) 1 % (0-3) Neutrophils # (Auto) 5.5 x10^3/uL (1.8-7.7) Lymphocytes # (Auto) 1.6 x10^3/uL (1.0-4.8) Monocytes # (Auto) 0.7 x10^3/uL (0.0-1.1) Eosinophils # (Auto) 0.0 x10^3/uL (0.0-0.7) Basophils # (Auto) 0.0 x10^3/uL (0.0-0.2) Sodium Level 132 mmol/L (136-145) Potassium Level 3.9 mmol/L (3.5-5.1) Chloride Level 97 mmol/L (98-107) Carbon Dioxide Level 24 mmol/L (21-32) Anion Gap 11 (6-14) Blood Urea Nitrogen 14 mg/dL (7-20) Creatinine 1.0 mg/dL (0.6-1.0) Estimated GFR (Cockcroft-Gault) 54.2 BUN/Creatinine Ratio 14 (6-20) Glucose Level 104 mg/dL (70-99) Lactic Acid Level 0.9 mmol/L (0.4-2.0) Calcium Level 9.1 mg/dL (8.5-10.1) Magnesium Level 2.0 mg/dL (1.8-2.4) Total Bilirubin 0.5 mg/dL (0.2-1.0) Aspartate Amino Transf (AST/SGOT) 13 U/L (15-37) Alanine Aminotransferase (ALT/SGPT) 16 U/L (14-59) Alkaline Phosphatase 57 U/L (46-116) Creatine Kinase 71 U/L (26-192) Creatine Kinase MB (Mass) 1.3 ng/mL (0.0-3.6) Creatine Kinase MB Relative Index % (0-4) Troponin I Quantitative < 0.017 ng/mL (0.000-0.055) < 0.017 ng/mL (0.000-0.055) < 0.017 ng/mL (0.000-0.055) Total Protein 7.9 g/dL (6.4-8.2) Albumin 3.7 g/dL (3.4-5.0) Albumin/Globulin Ratio 0.9 (1.0-1.7) Microbiology 08/23/21 Urine Culture - Final, Complete Medications Current Medications Sodium Chloride 1,000 ml @ 1,000 mls/hr 1X ONCE IV Last administered on 08/23/21at 13:36; Start 08/23/21 at 13:00; Stop 08/23/21 at 13:59; Status DC Dexamethasone Sodium Phosphate (Decadron) 10 mg 1X ONCE IVP ; Start 08/23/21 at 13:00; Stop 08/23/21 at 13:09; Status DC Ondansetron HCl (Zofran) 4 mg 1X ONCE IVP ; Start 08/23/21 at 13:00; Stop 08/23/21 at 13:09; Status DC Meclizine HCl (Antivert) 25 mg 1X ONCE PO ; Start 08/23/21 at 13:00; Stop 08/23/21 at 13:09; Status DC Dexamethasone Sodium Phosphate (Decadron) 20 mg STK-MED ONCE .ROUTE ; Start 08/23/21 at 13:06; Stop 08/23/21 at 13:07; Status DC Diazepam (Valium) 2 mg 1X ONCE PO Last administered on 08/23/21at 15:15; Start 08/23/21 at 14:15; Stop 08/23/21 at 14:29; Status DC Dexamethasone Sodium Phosphate (Decadron) 10 mg 1X ONCE IVP Last administered on 08/23/21at 15:16; Start 08/23/21 at 14:15; Stop 08/23/21 at 14:29; Status DC Ondansetron HCl (Zofran) 4 mg 1X ONCE IVP Last administered on 08/23/21at 15:15; Start 08/23/21 at 14:15; Stop 08/23/21 at 14:29; Status DC Aspirin (Ecotrin) 325 mg 1X ONCE PO Last administered on 08/23/21at 15:15; Start 08/23/21 at 15:00; Stop 08/23/21 at 15:04; Status DC Ondansetron HCl (Zofran) 4 mg PRN Q8HRS PRN IVP NAUSEA/VOMITING; Start 08/23/21 at 15:00; Stop 08/24/21 at 14:59; Status DC Acetaminophen (Tylenol) 650 mg Q6HRS PO ; Start 08/23/21 at 18:00; Stop 08/24/21 at 01:40; Status DC Aspirin (Aspirin Chewable) 81 mg DAILY PO Last administered on 08/24/21at 09:04; Start 08/24/21 at 09:00 Lisinopril (Prinivil) 5 mg DAILY PO ; Start 08/24/21 at 09:00; Status UNV Lorazepam (Ativan) 0.5 mg PRN Q8HRS PRN PO anxiety; Start 08/23/21 at 17:15 Amlodipine Besylate (Norvasc) 2.5 mg DAILY PO Last administered on 08/24/21at 09:04; Start 08/23/21 at 18:30 Ceftriaxone Sodium (Rocephin) 1 gm Q24H IVP Last administered on 08/23/21at 18:08; Start 08/23/21 at 18:00; Stop 08/24/21 at 13:55; Status DC Acetaminophen (Tylenol) 650 mg PRN Q6HRS PRN PO MILD PAIN / TEMP > 100.3'F; Start 08/24/21 at 01:45 Magnesium Hydroxide (Milk Of Magnesia) 2,400 mg PRN DAILY PRN PO CONSTIPATION; Start 08/24/21 at 10:00 Meclizine HCl (Antivert) 12.5 mg PRN Q6HRS PRN PO DIZZINESS; Start 08/24/21 at 10:30 Active Scripts Active Ativan (Lorazepam) 0.5 Mg Tablet 0.5 Mg PO HS PRN PRN 60 Days Lisinopril 5 Mg Tablet 1 Tab PO DAILY 60 Days Reported Children's Aspirin (Aspirin) 81 Mg Tab.chew 1 Tab PO DAILY 30 Days Tylenol (Acetaminophen) 325 Mg Tablet 650 Mg PO Q6HRS Vitals/I & O Vital Sign - Last 24 Hours 08/24/21 08/24/21 08/24/21 08/24/21 11:00 15:00 20:05 22:51 Temp 97.9 97.5 97.6 97.9 97.5 97.6 Pulse 75 87 75 Resp 18 18 20 B/P (MAP) 147/75 (99) 135/65 (88) 136/78 (97) Pulse Ox 96 98 95 O2 Delivery Room Air 08/25/21 08/25/21 08/25/21 03:00 07:00 08:30 Temp 97.7 98.3 97.7 98.3 Pulse 65 68 Resp 18 18 B/P (MAP) 159/78 (105) 125/76 (92) Pulse Ox 98 99 O2 Delivery Room Air Intake and Output 08/24/21 08/24/21 08/25/21 15:00 23:00 07:00 Intake Total 440 ml Output Total 600 ml Balance 440 ml -600 ml Justicifation of Admission Dx: Justifications for Admission: Justification of Admission Dx: Yes ONEL FERGUSON MD Aug 25, 2021 10:50
[2021-08-25] MEDS ORDERED: MECL12.582 PO (10:53)
[2021-08-25 11:00] VITALS: BP 128/83
--- NOTE | 2021-08-25 13:52 | NUR ---
SW following. Discussed with RN, discharge order for home with self care. Therapy recommending home independent. No further SW needs.
[2021-08-25] MEDS ORDERED: AMLO-186 PO (14:48)
[2021-08-25 15:00] VITALS: BP 145/74
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
--- NOTE | 2021-08-25 16:32 | NUR ---
Pt left unit at 1630 by wheelchair via private vehicle, accompanied by . Pt's IV removed without complication, VSS. Discharge paperwork discussed in depth with pt and , including new prescriptions, follow-up, and teaching. Pt and verbalize understanding. Pt provided with walker on discharge.
== END 2021-08-25 16:35 | disposition home or self-care (01) | DRG 149 ==
LOC: ER 12:30 → 5 NORTH 14:56
PROVIDERS: ADMIT Internal Medicine; ATTEND Internal Medicine
DX: H81.10 Benign paroxysmal vertigo, unspecified ear (principal); N39.0 Urinary tract infection, site not specified; E11.36 Type 2 diabetes mellitus with diabetic cataract; E66.9 Obesity, unspecified; F41.9 Anxiety disorder, unspecified; G89.29 Other chronic pain; I10 Essential (primary) hypertension; K21.9 Gastro-esophageal reflux disease without esophagitis; M19.90 Unspecified osteoarthritis, unspecified site; M50.322 Other cervical disc degeneration at C5-C6 level; M53.2X2 Spinal instabilities, cervical region; M81.0 Age-related osteoporosis without current pathological fracture; Z82.49 Family history of ischemic heart disease and other diseases of the circulatory system; Z83.3 Family history of diabetes mellitus; Z87.891 Personal history of nicotine dependence; Z91.81 History of falling; G43.909 Migraine, unspecified, not intractable, without status migrainosus
CPT/HCPCS: 36415; 70450; 71045; 80053; 81001; 82553; 83605; 83735; 84484; 85025; 87086; 93005; 96361; 96374; J0696; J1100; J2405; J7030; 97116-GP; 97535-GO; 99285-25; G0378

== ENCOUNTER → 2021-09-15 | Outpatient (CLI) | payer MEDICARE, BC ==
[2021-08-25 15:00] VITALS: BP 145/74
[~2021-09-15] MED LIST changes: +AMLO-186 PO; -LISI-517 PO; +LISI5TAB15 PO; +MECL12.582 PO
--- NOTE | 2021-09-16 13:43 | CARD ---
MR#: [id number] Date of Study: 09/15/2021 Ordering Physician: CAROLE CANTOR, Referring Physician: CAROLE CANTOR, Tech: Angelica See [facility] APPROVED REPORT EXAM: Two-dimensional and M-mode echocardiogram with Doppler and color Doppler. Other Information Quality : AverageHR: 78bpm Rhythm : NSR INDICATION Chest Pain 2D DIMENSIONS RVDd2.6 (2.9-3.5cm)Left Atrium(2D)2.8 (1.6-4.0cm) IVSd0.9 (0.7-1.1cm)Aortic Root(2D)3.3 (2.0-3.7cm) LVDd4.1 (3.9-5.9cm)LVOT Diameter2.0 (1.8-2.4cm) PWd1.1 (0.7-1.1cm)LVDs1.8 (2.5-4.0cm) FS (%) 55.4 %SV64.8 ml Aortic Valve AoV Peak Michael.116.9cm/sAoV VTI23.9cm AO Peak GR.5.5mmHgLVOT Peak Michael.104.7cm/s AO Mean GR.3mmHgAVA (VMAX)2.74cm2 Mitral Valve MV E Tjofcnlq19.4cm/sMV DECEL QPQV092mn MV A Yreunqxy494.7cm/sE/A Ratio0.7 Pulmonary Valve PV Peak Gykxcgxe016.7cm/s LEFT VENTRICLE The left ventricle is normal size. There is mild concentric left ventricular hypertrophy. The left ve ntricular systolic function is normal and the ejection fraction is within normal range. LV ejection f raction is 55 to 60%. There is normal LV segmental wall motion. Transmitral Doppler flow pattern is G rade I-abnormal relaxation pattern. RIGHT VENTRICLE The right ventricle is normal size. There is normal right ventricular wall thickness. The right ventr icular systolic function is normal. ATRIA The left atrium size is normal. The right atrium size is normal. The interatrial septum is intact wit h no evidence for an atrial septal defect or patent foramen ovale as noted on 2-D or Doppler imaging. AORTIC VALVE The aortic valve is normal in structure and function. Doppler and Color Flow revealed no significant aortic regurgitation. There is no significant aortic valvular stenosis. MITRAL VALVE The mitral valve is normal in structure and function. There is no evidence of mitral valve prolapse. There is no mitral valve stenosis. Doppler and Color Flow revealed trace mitral valve regurgitation. TRICUSPID VALVE The tricuspid valve is normal in structure and function. Doppler and Color Flow revealed no tricuspid valve regurgitation noted. There is no tricuspid valve stenosis. PULMONIC VALVE The pulmonary valve is normal in structure and function. Doppler and Color Flow revealed no pulmonic valvular regurgitation. GREAT VESSELS The aortic root is normal in size. The ascending aorta is normal in size. The IVC is normal in size a nd collapses >50% with inspiration. PERICARDIAL EFFUSION There is no evidence of significant pericardial effusion. Critical Notification Critical Value: No <Conclusion> The left ventricle is normal size. The left ventricular systolic function is normal and the ejection fraction is within normal range. LV ejection fraction is 55 to 60%. There is normal LV segmental wall motion. There is mild concentric left ventricular hypertrophy. Doppler and Color Flow revealed no significant aortic regurgitation. There is no significant aortic valvular stenosis. Doppler and Color Flow revealed trace mitral valve regurgitation. Doppler and Color Flow revealed no tricuspid valve regurgitation noted. Signed by : Rajiv Oro MD Electronically Approved : 09/16/2021 13:42:59
== END ==
LOC: ECHO 07:26
PROVIDERS: ATTEND Internal Medicine Cardiovascular Disease
DX: I51.7 Cardiomegaly (principal); I21.4 Non-ST elevation (NSTEMI) myocardial infarction; R07.9 Chest pain, unspecified
CPT/HCPCS: 93306